=== PATIENT | female | born 1980 | race Asian ===

== ENCOUNTER 2016-09-05 05:03 | Emergency (ER) | payer OTHER, MEDICAID ==
[2016-09-05] MEDS ORDERED: NS 0.9% 1000 ML* 2,000 ML IV ONE (07:09)
[2016-09-05] MEDS ORDERED: Ketorolac INJ* 30 MG/ML 1 ML VIAL IV ONE (07:09)
[2016-09-05] MEDS ORDERED: diPHENhydraMINE IV* 50 MG/ML 1 ml VIAL (BENADRYL) IM ONE (07:09)
[2016-09-05 07:22] LABS: Hematocrit 38 % (35-47); Hemoglobin 11.5 g/dl (12.0-16.0); Mean Corpuscular HGB Conc 31 g/dl (31-36); Mean Corpuscular Hemoglobin 22 pg (27-31); Mean Platelet Volume 11 um3 (7.4-10.4); Red Blood Count 5.22 10^6/ul (4.0-5.4); Red Cell Distribution Width 16 % (10.5-15); White Blood Count 16.1 10^3/ul (3.5-10.8)
[2016-09-05 07:23] LABS: Comments Flag Yes; Mean Corpuscular Volume 72 fL (80-97)
--- NOTE | 2016-09-05 07:28 | ED ---
Headache - HPI Summary HPI Summary: 36 female presents accompanied with daughter with complaints of headache, myalgias and sore throat that began and has been intermittent since then. Patient has been unable to sleep because of the pain. She has tried taking her at home medication that she is prescribed for chronic migraines- triptan, propanolol and tylenol. Patient has had little relief. Last taken at 8 and 10pm last night 09/04/16. Patient denies nausea and vomiting. She states this headache is different than her typical migraines. Admits to fever/chills. She did have the flu shot this year. Denies neurologic deficits and excessive tearing/runny nose. Describes the headache to be diffuse on the top of her head and a burning sensation. Denies radiation and numbness/tingling. Is experiencing photophobia and hurts to use her eyes but no aura or visual changes. Sore throat is exacerbated by swallowing. - History Of Current Complaint Chief Complaint: EDHeadache Stated Complaint: HEADACHE Time Seen by Provider: 09/05/16 06:49 Hx Obtained From: Patient Onset/Duration: Sudden Onset, Started days ago, Worse Since Initially Headache Was: Severe Currently Pain Is: Current Pain Scale(0-10)= - 8 Timing: Intermittent, Lasting: - hours, goes away and comes back Character: Sharp - burning Location of Headache: Diffuse, Frontal, Parietal Aggravating Factor: Exertion, Bright Lights Allevating Factors: Nothing, Rest Associated Signs And Symptoms: Fever - Allergies/Home Medications Allergies/Adverse Reactions: Allergies Allergy/AdvReac Type Severity Reaction Status Date / Time Ciprofloxacin Allergy Mild Itching Verified 09/05/16 05:57 PMH/Surg Hx/FS Hx/Imm Hx Endocrine/Hematology History: Denies: Hx Diabetes Cardiovascular History: Denies: Hx Hypertension, Hx Pacemaker/ICD Respiratory History: Denies: Hx Asthma Sensory History: Denies: Hx Hearing Aid Neurological History: Reports: Hx Migraine, Hx Seizures Psychiatric History: Reports: Hx Panic Disorder - ANXIETY - Surgical History Surgery Procedure, Year, and Place[place] [facility] [place] BIL[place]AL ESSURE PLACEMENT - Immunization History Date of Tetanus Vaccine: UTD Date of Influenza Vaccine: 2012 Infectious Disease History: No Infectious Disease History: Denies: Traveled Outside the [place] in Last 30 Days - Family History Known Family History: Positive: None Family History: R & n/C - Social History Alcohol Use: None Hx Substance Use: No Substance Use Type: Reports: None Hx Tobacco Use: No Smoking Status (MU): Never Smoked Tobacco Review of Systems Positive: Fever, Chills Eyes: Negative Positive: Sore Throat Cardiovascular: Negative Respiratory: Negative Gastrointestinal: Negative Positive: Myalgia Skin: Negative Positive: Headache All Other Systems Reviewed And Are Negative: Yes Physical Exam Triage Information Reviewed: Yes Vital Signs On Initial Exam: Initial Vitals Temp Pulse Resp BP Pulse Ox 99.4 F 90 20 95/63 98 09/05/16 05:20 09/05/16 05:20 09/05/16 05:20 09/05/16 05:20 09/05/16 05:20 low grade fever noted. patient's BP is her norm. Vital Signs Reviewed: Yes Appearance: Positive: Well-Nourished, Ill-Appearing, Pain Distress Skin: Positive: Warm - hot to touch, Skin Color Reflects Adequate Perfusion, Dry , Other - no subcutaneous nodules or signs of erythema marginatum Head/Face: Positive: Normal Head/Face Inspection Eyes: Positive: Normal, Conjunctiva Clear ENT: Positive: Normal ENT inspection, Hearing grossly normal, Pharyngeal erythema, TMs normal, Tonsillar swelling. Negative: Nasal congestion, Nasal drainage, Tonsillar exudate, Trismus, Muffled/hoarse voice Neck: Positive: Supple, Nontender, No Lymphadenopathy - difficult to palpate due to excessive adipose around neck. Negative: Nuchal Rigidity, Tenderness @ Respiratory/Lung Sounds: Positive: Clear to Auscultation, Breath Sounds Present. Negative: Decreased Breath Sounds, Rales, Rhonchi, Wheezes Cardiovascular: Positive: Normal, RRR, Pulses are Symmetrical in both Upper and Lower Extremities Abdomen Description: Positive: Nontender, No Organomegaly, Soft. Negative: Bruit, CVA Tenderness (R), CVA Tenderness (L), Peritoneal Signs Bowel Sounds: Positive: Present Musculoskeletal: Positive: Normal, Strength/ROM Intact. Negative: Pain @, Sana Sign Left, Sana Sign Right, Edema Left, Edema Right Neurological: Positive: Normal, Sensory/Motor Intact, Alert, Oriented to Person Place, Time, CN Intact II-III, Reflexes Intact, NV Bundle Intact Distally, Normal Gait, Finger to Nose - normal, Facial Symmetry, Speech Normal, Other - no chorea Psychiatric: Positive: Normal AVPU Assessment: Alert - Andrea Coma Scale Best Eye Response: 4 - Spontaneous Best Motor Response: 6 - Obeys Commands Best Verbal Response: 5 - Oriented Diagnostics - Vital Signs Vital Signs Temp Pulse Resp BP Pulse Ox 09/05/16 06:30 91 104/61 97 09/05/16 06:00 90 97/51 99 09/05/16 05:30 89 93/52 98 09/05/16 05:24 87 99 09/05/16 05:22 95/63 09/05/16 05:20 99.4 F 90 20 95/63 98 - Laboratory Result Diagrams: 09/05/16 05:35 09/05/16 05:35 Lab Statement: Any lab studies that have been ordered have been reviewed, and results considered in the medical decision making process. - CT ct brain CT Interpretation: No Acute Changes - no intracranial mass or hemorrhage is noted. CT Interpretation Completed By: Radiologist Re-Evaluation - Re-Evaluation First Eval Re-Evaluation Time: 09:00 Change: Improved - patient was feeling better after administration of toradol, benedryl fluids and amox. ready to d/c Headache Course/Dx - Course Course Of Treatment: Difficult history to obtain due to language barrier. CT brain ordered to rule out hemorrhage or lesion due to change in headache, and patient stating it is different and "worse than ever". It was negative. Labs, UA and flu/strep obtained due to fever and complaints of myalgia and sore throat. Positive for strep. Given fluids, toradol and benedryl to start for pain managment and break migraine cycle. Given amoxicillin first dose while in ED. No signs of complications of strep. Will be treated with Amox outpatient and follow up. Continue tylenol and migraine medications at home. Aware of worsening signs and symptoms. - Diagnoses Differential Diagnosis/HQI/PQRI: Migraine, Subarachnoid Hemorrhage, Tension Headache, Viral Syndrome, Other Provider Diagnoses: Streptococcal pharyngitis Discharge - Discharge Plan Condition: Stable Disposition: HOME Prescriptions: Amoxicillin CAP* [Amoxicillin 500 MG CAP*] 500 mg PO Q12H #19 cap Patient Education Materials: Strep Throat (ED) Referrals: Katherine Hilliard MD [Primary Care Provider] - Additional Instructions: Take prescribed antibiotic as directed until entire dose is finished, even if symptoms resolve. Recommend using Chloraseptic spray OTC to help soothe throat. Warm salt water swishes. Continue migraine medication to help with headache. Tylenol every 4-6 hours for fever and pain. Drink plenty of fluids and get plenty of rest. Follow up with your primary care doctor. If your symptoms worsen or do not improve please seek medical attention promptly.
[2016-09-05 07:32] LABS: ALT 25 U/L (7-52); Albumin 3.5 g/dL (3.2-5.2); Alkaline Phosphatase 83 U/L (34-104); BUN/Creatinine Ratio 11.3 (8-20); Blood Urea Nitrogen 9 mg/dL (6-24); CO2 Carbon Dioxide 25 mmol/L (22-32); Chloride 102 mmol/L (101-111); EGFR Non-African American 81.6 (>60); Globulin 3.9 g/dL (2-4); Glucose 120 mg/dL (70-100); Sodium 133 mmol/L (133-145); Total Protein 7.4 g/dL (6.4-8.9)
[2016-09-05 07:52] LABS: AST 27 U/L (13-39); Anion Gap 6 mmol/L (2-11); Potassium 3.9 mmol/L (3.5-5.0)
[2016-09-05] MEDS ORDERED: diPHENhydraMINE IV* 25 MG in NS 0.9% 50 ML* 50 ML IVPB ONE (08:20)
[2016-09-05] MEDS ORDERED: Amoxicillin CAP* 250 MG PO ONE (08:21)
[2016-09-05] MEDS ORDERED: diPHENhydraMINE IV* 50 MG/ML 1 ml VIAL (BENADRYL) IV ONE (08:21)
--- NOTE | 2016-09-05 08:58 | RAD ---
Indication: Headaches, myalgia with fever. CT of the brain was performed without IV contrast. Comparison is made with previous exam dated May 12, 2013. Ventricular structures are midline. No midline shift is noted. The extraction spaces are unremarkable. There is no evidence of intracranial mass or hemorrhage. No other high or low density lesions are identified. Mastoid air cells and paranasal sinuses are otherwise unremarkable. IMPRESSION: No intracranial mass or hemorrhage is noted.
[2016-09-05 09:57] VITALS: BP 99/57
== END 2016-09-05 09:56 | disposition home or self-care (01) ==
LOC: ED 05:03
DX: J02.0 Streptococcal pharyngitis (principal); R51 Headache; R50.9 Fever, unspecified; M79.1 Myalgia
CPT/HCPCS: 36415; 70450; 80053; 84702; 85025; 86703; 87502; 87651; 96374; 96375; 99284; A9270-GY; J1200; J1885

== ENCOUNTER 2016-09-07 15:33 | Emergency (ER) | payer OTHER, MEDICAID ==
[2016-09-07] MEDS ORDERED: NS 0.9% 1000 ML* 1,000 ML IV ONE ×3 (18:26→20:39)
--- NOTE | 2016-09-07 18:39 | ED ---
HPI Febrile Illness - HPI Summary HPI Summary: Patient arrives to ED with CC of continuing fever, sweats, chills and VALLEJO that begins in the posterior occipital lobe and radiates to the frontal lobe. She denies travel or sick contacts. She was seen in the ED 2 days ago and tested positive for strep throat. She was placed on Amoxicillin which she has been taking for 2 days. She continues to c/o fever. She has called her PCP who recommended her come to the ED and receive an LP. There is a language barrier and her is here with her helping to translate. She states she is otherwise healthy other than migraines. She denies abd pain, weakness, muscle aches or back pain. Denies urinary symptoms. She has a history of migraines, but she states this feels different than her typical migraine. Denies photophobia, tearing or nasal drainage. She denies chest pain, pressure or cough. She denies rash or skin changes. She denies throat pain or enlarged tonsils. Denies visual disturbances. Patient has never had anything like this before and states while it began 4 days ago, she feels her symptoms are becoming worse. She has tried to take her propanolol, triptan and tylenol for her VALLEJO's and these have not helped. - History of Current Complaint Chief Complaint: EDHeadache Time Seen by Provider: 09/07/16 17:42 Hx Obtained From: Patient Hx From Patient Unobtainable Due To: Other - difficult history d/t language barrier Timing: Constant Temperature: 97.6 F Initial Severity: Mild Current Severity: Severe Pain Intensity: 10 Pain Scale Used: 0-10 Numeric Aggravating Factors: Nothing Alleviating Factors: Nothing Associated Signs and Symptoms: Diaphoresis, Headache, Nausea, Night Sweats, Sore Throat - Risk Factors Pseudomonas Risk Factors: Negative Serious Bacterial Infection Risk Factors: Negative - Allergy/Home Medications Allergies/Adverse Reactions: Allergies Allergy/AdvReac Type Severity Reaction Status Date / Time Ciprofloxacin Allergy Mild Itching Verified 09/05/16 05:57 PMH/Surg Hx/FS Hx/Imm Hx Previously Healthy: Yes Endocrine/Hematology History: Denies: Hx Diabetes Cardiovascular History: Denies: Hx Hypertension, Hx Pacemaker/ICD Respiratory History: Denies: Hx Asthma Sensory History: Denies: Hx Hearing Aid Neurological History: Reports: Hx Migraine, Hx Seizures Psychiatric History: Reports: Hx Panic Disorder - ANXIETY - Surgical History Surgery Procedure, Year, and Place: 07/21/11 AT [facility] – [place] HYSTEROSCOPY BILATERAL ESSURE PLACEMENT - Immunization History Date of Tetanus Vaccine: UTD Date of Influenza Vaccine: 2012 Hx Pertussis Vaccination: No Immunizations Up to Date: Yes Infectious Disease History: Denies: Traveled Outside the [place] in Last 30 Days - Family History Known Family History: Positive: None Family History: R & n/C - Social History Occupation: Unemployed Lives: With Family Alcohol Use: None Hx Substance Use: No Substance Use Type: Reports: None Hx Tobacco Use: No Smoking Status (MU): Never Smoked Tobacco Review of Systems Positive: Fever, Chills, Fatigue, Skin Diaphoresis Eyes: Negative ENT: Negative Respiratory: Negative Gastrointestinal: Negative Positive: no symptoms reported, see HPI Musculoskeletal: Negative Skin: Negative Positive: Headache Psychological: Normal All Other Systems Reviewed And Are Negative: Yes Physical Exam Triage Information Reviewed: Yes Vital Signs On Initial Exam: Initial Vitals Temp Pulse Resp BP Pulse Ox 97.7 F 101 20 111/73 98 09/07/16 15:36 09/07/16 15:36 09/07/16 15:36 09/07/16 15:36 09/07/16 15:36 Vital Signs Reviewed: Yes Appearance: Positive: Well-Appearing, No Pain Distress, Well-Nourished Skin: Positive: Warm, Skin Color Reflects Adequate Perfusion Head/Face: Positive: Normal Head/Face Inspection Eyes: Positive: Normal, EOMI, HINA, Conjunctiva Clear Neck: Positive: Supple, No Lymphadenopathy Respiratory/Lung Sounds: Positive: Clear to Auscultation, Breath Sounds Present Cardiovascular: Positive: Normal, RRR Musculoskeletal: Positive: Normal, Strength/ROM Intact Neurological: Positive: Sensory/Motor Intact, Speech Normal Psychiatric: Positive: Normal - Andrea Coma Scale Best Eye Response: 4 - Spontaneous Best Motor Response: 6 - Obeys Commands Best Verbal Response: 5 - Oriented Diagnostics - Vital Signs Vital Signs Temp Pulse Resp BP Pulse Ox 09/07/16 16:50 99.1 F 100 18 124/82 100 09/07/16 15:36 97.7 F 101 20 111/73 98 - Laboratory Result Diagrams: 09/07/16 19:15 09/07/16 19:15 Lab Statement: Any lab studies that have been ordered have been reviewed, and results considered in the medical decision making process. Course/Dx - Course Course Of Treatment: Patient was given 1L fluids, labs oK. UA Ok. Patient has vomiting during stay x3. zofran given. 2 hours later, compazine was given. nausea and vomiting stopped. LP done by Dr. Alex. No evidence of infection or meningitis. afebrile. patient is OK with discharge home with note for work and nausea medications. This is a likely complication from strep throat diagnosed 2 days ago, or co-occuring viral illness causing low grade fevers, sweats and chills. Continuation of amoxicillin for strep throat and rest. patient will follow up with PCP. CXR negative. - Febrile Illness Differential Diagnoses: Fever of Unknown Origin, Pneumonia, Pyelonephritis - Diagnoses Provider Diagnoses: Fever Discharge - Discharge Plan Condition: Stable Disposition: HOME Prescriptions: Ondansetron ODT TAB* [Zofran 4 MG Odt TAB*] 4 mg PO Q6H PRN #12 tab.odt MDD 4 PRN Reason: Nausea Patient Education Materials: Viral Syndrome (ED) Forms: *Work Release Referrals: Katherine Hilliard MD [Primary Care Provider] - Additional Instructions: Follow up with your PCP. Call tomorrow. Tylenol 650mg three times daily as needed for pain If symptoms become worse, come back to ED Take zofran as needed for nausea
--- NOTE | 2016-09-07 19:08 | RAD ---
INDICATION: Fever. COMPARISON: Comparison is made with a prior chest x-ray study from March 08, 2010. TECHNIQUE: Dual-energy PA and lateral views of the chest were obtained. FINDINGS: The heart is within normal limits in size. Mediastinal and hilar contours appear within normal limits. The lungs are clear. No pleural effusion is present. IMPRESSION: NO EVIDENCE FOR ACTIVE CARDIOPULMONARY DISEASE.
[2016-09-07 19:34] LABS: Hematocrit 35 % (35-47); Mean Corpuscular HGB Conc 31 g/dl (31-36); Mean Corpuscular Hemoglobin 22 pg (27-31); Red Blood Count 5.05 10^6/ul (4.0-5.4); Red Cell Distribution Width 16 % (10.5-15); White Blood Count 6.4 10^3/ul (3.5-10.8)
[2016-09-07 19:35] LABS: Add Diff/Slide Review? Manual Diff Added; Comments Flag Yes; Mean Corpuscular Volume 70 fL (80-97)
[2016-09-07 19:41] LABS: ALT 24 U/L (7-52); Albumin 3.6 g/dL (3.2-5.2); Alkaline Phosphatase 103 U/L (34-104); BUN/Creatinine Ratio 7.6 (8-20); Blood Urea Nitrogen 5 mg/dL (6-24); C Reactive Protein 186.73 mg/L (< 5.00); CO2 Carbon Dioxide 26 mmol/L (22-32); Calcium 9.1 mg/dL (8.6-10.3); Chloride 101 mmol/L (101-111); Creatine Kinase 40 U/L (10-223); EGFR African American 131.1 (>60); EGFR Non-African American 101.9 (>60); Globulin 4.3 g/dL (2-4); Glucose 110 mg/dL (70-100); Sodium 135 mmol/L (133-145); Total Protein 7.9 g/dL (6.4-8.9)
[2016-09-07 19:43] LABS: AST 27 U/L (13-39); Anion Gap 8 mmol/L (2-11); Potassium 3.8 mmol/L (3.5-5.0)
[2016-09-07 19:58] LABS: Hypochromasia 1+; Immature Granulocytes 5 % (0-9); Neutrophil % 59 % (38-83); Reactive Lymph % 2 % (0-6)
[2016-09-07 20:00] LABS: Mean Platelet Volume 10 um3 (7.4-10.4)
[2016-09-07] MEDS ORDERED: Acetaminophen TAB* 325 MG ONE (20:12)
[2016-09-07] MEDS ORDERED: Acetaminophen TAB* 325 MG PO ONE (20:12)
[2016-09-07 20:30] LABS: Urine Bacteria 1+ (Absent); Urine Bilirubin Negative (Negative); Urine Glucose Negative (Negative); Urine Nitrite Negative (Negative)
[2016-09-07] MEDS ORDERED: Morphine INJ* 2 MG/ML 1 ML SYRINGE IV ONE (20:37)
--- NOTE | 2016-09-07 21:07 | RAD ---
INDICATION: Headache. COMPARISON: Comparison is made with a prior CT of the brain from September 05, 2016. TECHNIQUE: Contiguous axial sections of the brain were obtained from the skull base to the vertex without contrast. FINDINGS: The ventricles, cisterns and sulci are within normal limits. No significant focal abnormality or mass effect is seen. There is no evidence for hemorrhage. No significant focal osseous abnormality is seen. The visualized portion of the paranasal sinuses and mastoid air cells appear clear. IMPRESSION: NO EVIDENCE FOR ACUTE INTRACRANIAL ABNORMALITY.
[2016-09-07] MEDS ORDERED: Ondansetron INJ* 2 MG/ML VIAL IV ONE (21:42)
[2016-09-07] MEDS ORDERED: Morphine INJ* 4 MG/ML 1 ML SYRINGE ONE (22:19)
[2016-09-07] MEDS ORDERED: Morphine INJ* 4 MG/ML 1 ML SYRINGE IV ONE (22:21)
[2016-09-07 22:53] LABS: CSF Glucose 64 mg/dL (40-70)
--- NOTE | 2016-09-07 22:53 | ED ---
Vicente Newsome Soohyun, scribed for Concepcion Alex MD on 09/07/16 at 2155 . Progress - Progress Note Progress Note: [address] Alex in room to perform LP. Course/Dx - Course Course Of Treatment: Patient was given 1L fluids, labs and - Diagnoses Provider Diagnoses: Fever Procedure Note Lumbar Puncture - Lumbar Puncture Informed Conset (Refer to Hospital Form): Yes Position: Sitting Aseptic Technique: Local Anesthesia Spinal Needle Used: 22 Gauge The documentation as recorded by the melissaibVicente thompson Soohyun accurately reflects the service I personally performed and the decisions made by , Concepcion Alex MD.
[2016-09-07 22:59] LABS: Body Fluid Appearance Clear
[2016-09-07 23:00] LABS: BF RBC Count #1 0; BF RBC Count #2 0; BF WBC Count #1 1; BF WBC Count #2 2; RBC counts within 6%? Yes; WBC counts within 15%? Yes
[2016-09-07 23:01] LABS: Body Fluid WBC 1 /mcL
[2016-09-07 23:14] LABS: Body Fluid Total Cells Counted 30
[2016-09-07] MEDS ORDERED: PROCHLORPERAZINE INJ 5 MG/ML 2 ML VIAL IV PRN (23:52)
[2016-09-08] MEDS ORDERED: Ondansetron ODT TAB* 4 MG SL ONE (01:53)
[2016-09-08 02:35] VITALS: BP 105/71
== END 2016-09-08 02:34 | disposition home or self-care (01) ==
LOC: ED 15:33
DX: R50.9 Fever, unspecified (principal); R51 Headache; R11.0 Nausea
CPT/HCPCS: 36415; 70450; 71020; 80053; 81003; 81015; 82248; 82550; 82945; 83605; 84157; 85025; 86140; 86618; 87040; 87070; 87086; 87205; 87502; 89051; 96374; 99284; A9270-GY; J0696; J0780; J2270; J2405

== ENCOUNTER 2017-06-22 13:55 | Emergency (ER) | payer OTHER, MEDICAID ==
[2017-06-22] MEDS ORDERED: LORazepam INJ* 2 MG/ML 1 ML VIAL IV PUSH ONE ×2 (14:11→14:22)
[2017-06-22] MEDS ORDERED: LORazepam INJ* 2 MG/ML 1 ML VIAL ONE (14:23)
[2017-06-22 15:01] LABS: EGFR Non-African American 106.9 (>60)
[2017-06-22 15:09] LABS: ABS Basophils 0 10^3/ul (0-0.2); ABS Eosinophils 0.1 10^3/ul (0-0.6); ABS Lymphocytes 2.2 10^3/ul (1.0-4.8); ABS Monocytes 0.7 10^3/ul (0-0.8); ABS Neutrophils 4.7 10^3/ul (1.5-7.7); ABS Nucleated RBC 0 10^3/ul; Eosinophil % 1.8 % (0-6); Hematocrit 39 % (35-47); Hemoglobin 12.2 g/dl (12.0-16.0); Lymphocyte % 28.8 % (25-47); Mean Corpuscular HGB Conc 32 g/dl (31-36); Mean Corpuscular Hemoglobin 23 pg (27-31); Mean Corpuscular Volume 73 fL (80-97); Mean Platelet Volume 10 um3 (7.4-10.4); Nucleated Red Blood Cells % 0.1; Platelet Count 185 10^3/ul (150-450); Red Blood Count 5.27 10^6/ul (4.0-5.4); Red Cell Distribution Width 16 % (10.5-15); White Blood Count 7.8 10^3/ul (3.5-10.8)
[2017-06-22 15:31] VITALS: BP 108/72
--- NOTE | 2017-07-03 20:11 | ED ---
Gianni Newsome Stephanie, scribed for Bolivar Elise MD on 06/22/17 at 1414 . Allergic Reaction/Systemic - HPI Summary HPI Summary: The pt is a 37 y/o F presenting to the ED with c/o CP that began at 13:00 s/p taking her first dose of Lexapro. Symptoms include radiation of pain to the head. The CP is described as a burning sensation. The pt denies fever. - History of Current Complaint Chief Complaint: EDAllergicReaction Time Seen by Provider: 06/22/17 14:11 Hx Obtained From: Patient, Family/Office Equipment Technician - Onset/Duration: Sudden Onset, Still Present Timing: Constant Severity Currently: Mild Pain Intensity: 5 Pain Scale Used: 0-10 Numeric Character: Pain Aggravating Factor(s): Nothing Alleviating Factor(s): Nothing Associated Signs And Symptoms: Positive: Chest Pain - Allergies/Home Medications Allergies/Adverse Reactions: Allergies Allergy/AdvReac Type Severity Reaction Status Date / Time MS Ciprofloxacin Allergy Mild Itching Verified 09/05/16 05:57 [Ciprofloxacin] PMH/Surg Hx/FS Hx/Imm Hx Endocrine/Hematology History: Denies: Hx Diabetes Cardiovascular History: Denies: Hx Hypertension, Hx Pacemaker/ICD Respiratory History: Denies: Hx Asthma Sensory History: Denies: Hx Hearing Aid Neurological History: Reports: Hx Migraine, Hx Seizures Psychiatric History: Reports: Hx Panic Disorder - ANXIETY - Surgical History Surgery Procedure, Year, and Place: 07/21/11 AT [facility] – [place] HYSTEROSCOPY BILATERAL ESSURE PLACEMENT - Immunization History Date of Tetanus Vaccine: UTD Date of Influenza Vaccine: 2012 Infectious Disease History: No Infectious Disease History: Denies: Traveled Outside the [place] in Last 30 Days - Family History Known Family History: Negative: Cardiac Disease, Hypertension, Diabetes Family History: R & n/C - Social History Occupation: Unemployed Lives: With Family Alcohol Use: None Hx Substance Use: No Substance Use Type: Reports: None Hx Tobacco Use: No Smoking Status (MU): Never Smoked Tobacco Review of Systems Negative: Fever Positive: Chest Pain Positive: Headache All Other Systems Reviewed And Are Negative: Yes Physical Exam - Summary Physical Exam Summary: Appearance: Well-appearing, Well-nourished Skin: Warm, Dry, No rash Eyes: Normal, PERRL, EOMI, sclera anicteric ENT: Normal Neck: Supple, nontender Respiratory: Clear to auscultation Cardiovascular: S1, S2, no murmur, no rub, no gallop Abdomen: Soft, nontender, no organomegaly Bowel sounds: Present Musculoskeletal: Normal, Strength/ROM Intact, no edema, pulses symmetrical Neurological: Normal, A&Ox3, cranial nerves II-XII WNL, follows commands, gait not tested, sensation intact to pin and light touch Psychiatric: agitated, behavior appropriate, dressed appropriately, judgment intact Triage Information Reviewed: Yes Vital Signs On Initial Exam: Initial Vitals Temp Pulse Resp BP Pulse Ox 96.7 F 79 22 112/93 100 06/22/17 14:03 06/22/17 14:03 06/22/17 14:03 06/22/17 14:03 06/22/17 14:03 Vital Signs Reviewed: Yes Diagnostics - Vital Signs Vital Signs Temp Pulse Resp BP Pulse Ox 06/22/17 14:03 96.7 F 79 22 112/93 100 - Laboratory Result Diagrams: 06/22/17 14:38 06/22/17 14:38 Lab Statement: Any lab studies that have been ordered have been reviewed, and results considered in the medical decision making process. - EKG 14:31 Cardiac Rate: NL - 79 BPM EKG Rhythm: Sinus Rhythm EKG Interpretation: possible RBBB Re-Evaluation - Re-Evaluation First Eval Re-Evaluation Time: 14:45 Change: Improved - Pt is calmer and not moaning. Allergic Reaction Course/Dx - Course Course Of Treatment: Received Attavan. The pt is much calmer and easily arousable. She is discharged home to follow up with psych. - Diagnoses Provider Diagnoses: Panic attack Discharge - Discharge Plan Condition: Fair Disposition: HOME Prescriptions: Mirtazapine 15 mg PO BEDTIME #30 tab Patient Education Materials: Panic Attack (ED) Referrals: Katherine Hilliard MD [Primary Care Provider] - The documentation as recorded by the Gianni goodwin Stephanie accurately reflects the service I personally performed and the decisions made by me, Bolivar Elise MD.
== END 2017-06-22 17:50 | disposition home or self-care (01) ==
LOC: ED 13:55
DX: F41.0 Panic disorder [episodic paroxysmal anxiety] (principal); R07.9 Chest pain, unspecified; Z88.3 Allergy status to other anti-infective agents
CPT/HCPCS: 36415; 80053; 84443; 85025; 93005; 96374; 99283; J2060

== ENCOUNTER 2017-07-06 05:01 | Inpatient (IN) | payer OTHER, MEDICAID ==
[2017-07-06] MEDS ORDERED: NS 0.9% 1000 ML* 1,000 ML IV ONE (05:44)
[2017-07-06 05:47] LABS: ABS Basophils 0 10^3/ul (0-0.2); ABS Eosinophils 0.2 10^3/ul (0-0.6); ABS Lymphocytes 1.8 10^3/ul (1.0-4.8); ABS Monocytes 0.7 10^3/ul (0-0.8); ABS Neutrophils 4.7 10^3/ul (1.5-7.7); ABS Nucleated RBC 0 10^3/ul; Eosinophil % 2.1 % (0-6); Hematocrit 37 % (35-47); Hemoglobin 11.8 g/dl (12.0-16.0); Lymphocyte % 24.1 % (25-47); Mean Corpuscular HGB Conc 32 g/dl (31-36); Mean Corpuscular Hemoglobin 23 pg (27-31); Mean Corpuscular Volume 73 fL (80-97); Mean Platelet Volume 10 um3 (7.4-10.4); Nucleated Red Blood Cells % 0; Platelet Count 180 10^3/ul (150-450); Red Blood Count 5.07 10^6/ul (4.0-5.4); Red Cell Distribution Width 16 % (10.5-15); White Blood Count 7.4 10^3/ul (3.5-10.8)
[2017-07-06 05:56] LABS: EGFR Non-African American 106.9 (>60)
--- NOTE | 2017-07-06 07:04 | ED ---
Chaz Newsome Julia, scribed for Liam Chen MD on 07/06/17 at 0642 . Syncope/Near Syncope - HPI Summary HPI Summary: This patient is a 37 year old F [place] [facility] due to a tonic clonic seizure at 04:45 this morning lasting a few minutes. Per EMS, patient was given 10mg of IV Versed that stopped the seizure. Patient reports headache and CP prior to seizure. Patient has an extensive seizure history. states she has had three seizures in 2018, and roughly 3 in 2017. HPI is limited due to drowsiness of the patient after Versed. - History Of Current Complaint Chief Complaint: EDSeizure Time Seen by Provider: 07/06/17 05:31 Hx Obtained From: Patient, EMS Onset/Duration: Sudden Onset Timing: Minutes Activity At Onset: Unknown Associated Signs And Symptoms: Chest Pain, Headache, Seizure Related History: Similar Episode/Dx as - seizures Frequency: Ongoing Incidents Of Syncope For (in Mins/Days/Weeks/Years) - Allergies/Home Medications Allergies/Adverse Reactions: Allergies Allergy/AdvReac Type Severity Reaction Status Date / Time Ciprofloxacin Allergy Mild Itching Verified 09/05/16 05:57 [Ciprofloxacin] PMH/Surg Hx/FS Hx/Imm Hx Endocrine/Hematology History: Denies: Hx Diabetes Cardiovascular History: Denies: Hx Hypertension, Hx Pacemaker/ICD Respiratory History: Denies: Hx Asthma Sensory History: Denies: Hx Hearing Aid Neurological History: Reports: Hx Migraine, Hx Seizures Psychiatric History: Reports: Hx Panic Disorder - ANXIETY - Surgical History Surgery Procedure, Year, and Place: 07/21/11 [place] [facility] [place]STEROS[place] BILATERAL ESSURE PLACEMENT - Immunization History Date of Tetanus Vaccine: UTD Date of Influenza Vaccine: 2012 Infectious Disease History: No Infectious Disease History: Denies: Traveled Outside the [place] in Last 30 Days - Family History Known Family History: Negative: Cardiac Disease, Hypertension, Diabetes Family History: R & n/C - Social History Alcohol Use: None Hx Substance Use: No Substance Use Type: Reports: None Hx Tobacco Use: No Smoking Status (MU): Never Smoked Tobacco Review of Systems All Other Systems Reviewed And Are Negative: Yes - Comments Additional Review of Systems Comments: ROS is limited due to drowsy state of patient after Versed dose given by EMS. Physical Exam - Summary Physical Exam Summary: Appearance: Well appearing, no pain distress, no drowsiness Skin: warm, dry, reflects adequate perfusion Head/face: normal Eyes: EOMI, HINA ENT: normal, no tongue injury Neck: supple, non-tender Respiratory: CTA, breath sounds present Cardiovascular: RRR, pulses symmetrical Abdomen: non-tender, soft Bowel: present Musculoskeletal: normal, strength/ROM intact, moves all joints appropirately Neuro: normal, sensory motor intact, A&Ox3 Triage Information Reviewed: Yes Vital Signs On Initial Exam: Initial Vitals Temp Pulse Resp BP Pulse Ox 97.7 F 81 11 108/65 95 07/06/17 05:02 07/06/17 05:02 07/06/17 05:02 07/06/17 05:02 07/06/17 05:02 Vital Signs Reviewed: Yes Diagnostics - Vital Signs Vital Signs Temp Pulse Resp BP Pulse Ox 07/06/17 05:32 76 26 92/62 98 07/06/17 05:02 97.7 F 81 11 108/65 95 - Laboratory Lab Results: Lab Results 07/06/17 07/06/17 Range/Units 05:25 05:25 WBC 7.4 (3.5-10.8) 10^3/ul RBC 5.07 (4.0-5.4) 10^6/ul Hgb 11.8 L (12.0-16.0) g/dl Hct 37 (35-47) % MCV 73 L (80-97) fL MCH 23 L (27-31) pg MCHC 32 (31-36) g/dl RDW 16 H (10.5-15) % Plt Count 180 (150-450) 10^3/ul MPV 10 (7.4-10.4) um3 Neut % (Auto) 64.4 (38-83) % Lymph % (Auto) 24.1 L (25-47) % Faulkner % (Auto) 9.1 H (1-9) % Eos % (Auto) 2.1 (0-6) % Baso % (Auto) 0.3 (0-2) % Absolute Neuts (auto) 4.7 (1.5-7.7) 10^3/ul Absolute Lymphs (auto) 1.8 (1.0-4.8) 10^3/ul Absolute Monos (auto) 0.7 (0-0.8) 10^3/ul Absolute Eos (auto) 0.2 (0-0.6) 10^3/ul Absolute Basos (auto) 0 (0-0.2) 10^3/ul Absolute Nucleated RBC 0 10^3/ul Nucleated RBC % 0 Sodium 134 (133-145) mmol/L Potassium 3.3 L (3.5-5.0) mmol/L Chloride 105 (101-111) mmol/L Carbon Dioxide 25 (22-32) mmol/L Anion Gap 4 (2-11) mmol/L BUN 8 (6-24) mg/dL Creatinine 0.63 (0.51-0.95) mg/dL Est GFR ( Amer) 137.5 (>60) Est GFR (Non-Af Amer) 106.9 (>60) BUN/Creatinine Ratio 12.7 (8-20) Glucose 99 (70-100) mg/dL Calcium 9.0 (8.6-10.3) mg/dL Total Bilirubin 0.70 (0.2-1.0) mg/dL AST 17 (13-39) U/L ALT 22 (7-52) U/L Alkaline Phosphatase 54 (34-104) U/L Total Protein 7.0 (6.4-8.9) g/dL Albumin 3.6 (3.2-5.2) g/dL Globulin 3.4 (2-4) g/dL Albumin/Globulin Ratio 1.1 (1-3) Result Diagrams: 07/06/17 05:25 07/06/17 05:25 Lab Statement: Any lab studies that have been ordered have been reviewed, and results considered in the medical decision making process. - EKG 0501 Cardiac Rate: NL - at 77 BPM EKG Rhythm: Sinus Rhythm ST Segment: Non-Specific - anterior leads EKG Interpretation: nml axis Course/Dx Course Of Treatment: Hx limited by pt drowsiness after versed. Prior EEGs showed 1 neg and 1 pos study in 2013. On no meds. No head injury. CT 9mo ago was wnl. No tongue or joint injury. Does not drive. In records sz vs pseudosz. Obtained prolactin which is pending. Admit for sz obs, neuro c/s and possible repeat EEG. - Diagnoses Differential Diagnosis/HQI/PQRI: Positive: Seizure, Other - non-epileptic seizure Provider Diagnoses: Generalized seizure, Epilepsy - Physician Notifications Discussed Care of Patient With: Simi Winter Time Discussed With Above Provider: 06:30 Instructed by Provider To: Admit As Inpatient Discharge - Discharge Plan Condition: Fair Disposition: ADMITTED TO [facility] Referrals: Katherine Hilliard MD [Primary Care Provider] - The documentation as recorded by the Chaz goodwin Julia accurately reflects the service I personally performed and the decisions made by me, Liam Chen MD.
[2017-07-06] MEDS ORDERED: Al Hydrox/Mg Hydrox/Simet LIQ* 30 ML UDC PO PRN (09:30)
[2017-07-06] MEDS ORDERED: Albuterol 2.5 MG/3 ML NEB.SOL* (0.083%) INH PRN (09:30)
[2017-07-06] MEDS ORDERED: traZODone TAB* 50 MG TAB PO PRN (09:33)
[2017-07-06] MEDS ORDERED: Albuterol HFA INHALER* 8 gm MDI INH PRN (09:33)
[2017-07-06] MEDS ORDERED: Potassium Chlor TAB* 20 MEQ TAB.ER PO ONE (09:35)
--- NOTE | 2017-07-06 12:45 | HP ---
CC: Dr. Anderson * DATE OF ADMISSION: 07/06/2017. TIME: 7:00 a.m. PRIMARY CARE PHYSICIAN: Dr. Hilliard. PATIENT'S NEUROLOGIST: Dr. Odonnell. CHIEF COMPLAINT: Seizure. HISTORY OF PRESENT ILLNESS: This is a 37-year-old female with a history of a seizure disorder who presents from home with reported seizure activity. She had not been feeling well last evening and could not sleep, and early this morning came out to the kitchen and she cannot remember anything after that. Reportedly her daughter called EMS and when EMS arrived they witnessed "tonic clonic seizure activity" and administered Versed after which her seizure activity resolved. I have attempted to reach her daughter, Cary; however, the emergency contact information provided, which is her , does not answer. Ms. Frank reports having been diagnosed with a seizure disorder five years ago, for which she does not take any antiepileptics and she cannot remember when her last seizure was, but believes it has been several years. At this time she feels sleepy, but otherwise has no complaints. She does report a recent cold with rhinorrhea and sore throat, and also has had decreased appetite, some nausea and epigastric pain over the past few days. She denies fevers, dysuria, diarrhea, or recent headache. PAST MEDICAL HISTORY: Seizure disorder with an abnormal EEG in 2013, migraine disorder. MEDICATIONS: 1. Propranolol 60 mg b.i.d. 2. Nortriptyline 30 mg at bedtime. Please note that these two prescriptions are the only one she says she takes; however, her medication list also includes the followin. Relpax 40 mg daily prn. 2. Lexapro 10 mg at bedtime. 3. Trazodone 50 mg at bedtime prn. ALLERGIES: CIPROFLOXACIN. SOCIAL HISTORY: She works in the kitchen at [employer]. She lives with her and her children. She does not smoke cigarettes. She drinks one to two alcoholic beverages per month and uses no illicit substances. REVIEW OF SYSTEMS: As per HPI. The remainder of the 14 point review of systems is negative. PHYSICAL EXAMINATION GENERAL: Drowsy, young female who alerts to voice. She falls asleep several times during my interview. She is oriented times three. VITAL SIGNS: Heart rate 85, respiratory rate 26, pulse ox 98 percent on room air, blood pressure 104/55, temperature 97.7. HEENT: Pupils are 3 mm bilaterally and reactive to light. She does have some lateral nystagmus in both directions, but fatigues after two seconds. Moist oral mucosa with no pharyngeal exudates or erythema. NECK: No cervical adenopathy, no JVP. CHEST: Regular rate and rhythm. No murmurs. PMI nondisplaced. LUNGS: Clear bilaterally. ABDOMEN: Soft, nontender, nondistended. No guarding, no rebound. Negative Gallegos sign. EXTREMITIES: No edema, no rashes, no ulcers. NEUROLOGIC: Strength 5+ throughout. Coordination is intact. She follows complex commands and has good recall. LABORATORY DATA: White blood cell 7.4, hemoglobin 11.8, platelets 180; sodium 134, potassium 3.3, chloride 105, bicarb 25, BUN 8, creatinine 0.63, glucose 99 , LFT's are within normal limits, HCG and prolactin are pending. ASSESSMENT AND PLAN: This is a 37-year-old female with a history of a seizure disorder, not on antiepileptics who presents with a reported tonic clonic seizure at home early this morning. 1. Seizure: This was reportedly witnessed by her daughter; however, unfortunately I cannot reach her daughter to discuss what she witnessed this morning. It is unclear why Ms. Frank is not on antiepileptics. Records from her neurologist would be helpful. I will attempt to get them when the office opens. I have consulted with Dr. Anderson and preliminary he recommends an EEG and CPK which are pending at this time. She has not had imaging on this admission and I will defer this until she is evaluated by Neurology. I will follow-up on the HCG and the prolactin, which are also both pending. 2. Hypokalemia: Replete now. 3. History of migraines: None recently. Continue Propranolol and Nortriptyline. DISPOSITION: Pending Neurology consultation. [id number]/[facility] #: [id number] [facility]
[2017-07-06] MEDS ORDERED: LORazepam INJ* 2 MG/ML 1 ML VIAL ONE (13:14)
[2017-07-06] MEDS ORDERED: LORazepam INJ* 2 MG/ML 1 ML VIAL IV PUSH PRN ×2 (13:27→16:04)
[2017-07-06] MEDS ORDERED: Ondansetron INJ* 2 MG/ML VIAL ONE (13:28)
[2017-07-06] MEDS: Ondansetron INJ* 2 MG/ML VIAL IV SCH ×3 (13:34→21:33)
[2017-07-06] MEDS ORDERED: CMC:Zonisamide (NF) 50 MG CAP PO ONE (13:40)
[2017-07-06] MEDS ORDERED: CMC:Zonisamide (NF) 50 MG CAP PO SCH ×2 (14:00→21:00)
[2017-07-06] MEDS ORDERED: clonazePAM TAB(*) 1 MG PO SCH (14:00)
[2017-07-06] MEDS ORDERED: clonazePAM TAB(*) 1 MG ONE (14:05)
[2017-07-06 15:10] LABS: Urine Appearance Cloudy; Urine Blood 2+ (Negative); Urine Color Yellow; Urine Ketones Negative (Negative); Urine Protein Negative (Negative); Urine Specific Gravity 1.008 (1.010-1.030); Urine Urobilinogen Negative (Negative)
[2017-07-06 15:40] LABS: ABS Basophils 0 10^3/ul (0-0.2); ABS Eosinophils 0.1 10^3/ul (0-0.6); ABS Lymphocytes 1.7 10^3/ul (1.0-4.8); ABS Monocytes 0.7 10^3/ul (0-0.8); ABS Neutrophils 3.9 10^3/ul (1.5-7.7); ABS Nucleated RBC 0 10^3/ul; Eosinophil % 2.2 % (0-6); Hematocrit 35 % (35-47); Lymphocyte % 25.9 % (25-47); Mean Corpuscular HGB Conc 31 g/dl (31-36); Mean Corpuscular Hemoglobin 23 pg (27-31); Mean Corpuscular Volume 74 fL (80-97); Mean Platelet Volume 10 um3 (7.4-10.4); Nucleated Red Blood Cells % 0.1; Platelet Count 162 10^3/ul (150-450); Red Cell Distribution Width 16 % (10.5-15); White Blood Count 6.5 10^3/ul (3.5-10.8)
[2017-07-06] MEDS ORDERED: NS 0.9% 1000 ML* 500 ML IV ONE (17:47)
[2017-07-06] MEDS ORDERED: cefTRIAXone(*) 1 GM in NS 0.9% 50 ML* 50 ML IVPB SCH (18:00)
[2017-07-06] MEDS: cefTRIAXone(*) 1 GM in D5W 50 ML BAG* 50 ML IVPB SCH (18:30)
[2017-07-06] MEDS: Nortriptyline CAP* 10 MG PO SCH (21:33)
[2017-07-06] MEDS: Propranolol LA CAP* 60 MG PO SCH (21:33)
[2017-07-06] MEDS: Citalopram TAB* 20 MG PO SCH (21:33)
[2017-07-06] MEDS: NS 0.9% 1000 ML* 1,000 ML IV SCH (21:38)
--- NOTE | 2017-07-06 22:25 | CONS ---
CONSULTATION REPORT: DATE OF CONSULT: 07/06/17 PATIENT OF: Dr. Winter and Dr. Hilliard. HISTORY OF PRESENT ILLNESS: This is a 37-year-old woman who has a past history of seizures versus pseudoseizures who presented with possible seizures today. From Dr. Odonnell's notes back from 2013, she was having spells where she would stare off and sometimes jerks. She was on Tegretol for a while, but then there was concern about pseudoseizures and she underwent EEG monitoring at [facility], which showed no clinical seizure activity, no electrographic seizure activity and no ictal seizure discharges and she was taken off Tegretol at that point. While she was on Tegretol, she was also started on Zonegran, but the combination caused some dizziness. She has never been on Zonegran by herself. She continued to follow with Dr. Odonnell, but for her migraine headaches not her seizures. She has been stressed recently according to her children because of some marital discord. This morning at about 5:30, she had a spell, witnessed a tonic -clonic seizure activity, was given Versed and brought to the emergency room. She was sleepy following that, but then woke up and wanted to go home and talking and moving all 4 extremities. She then had, early afternoon, another episode, which was characterized by 2 minutes of generalized clonic activity, but with hand flapping associated with that according to Dr. Winter and some generalized tonic activity in her trunk. I had seen her first thing in the morning at 8:30 for my initial evaluation and when Dr. Winter called, I saw her within several minutes of the second spell, she was vomiting, clearly bringing up material. I then recommended beginning Zonegran for both her migraines and possible events and to give her some Klonopin and we would do video EEG monitoring if she had another event. She had a third event, which apparently was similar to the second one and she was transferred to the unit where I saw her for third time today and she was awake, understanding things, quiet, but moving all extremities with power. PAST MEDICAL HISTORY: Includes her migraines, history of spells according to Dr. Odonnell's note, there may have been an EEG that is abnormal, but had several that were normal, and had a prolonged monitoring that was normal. PAST SURGICAL HISTORY: She has had no known surgeries. MEDICATIONS AT HOME: Include: 1. Relpax 40 mg a day p.r.n. migraines. 2. Nortriptyline 30 mg at night. 3. Propranolol 60 mg twice a day. 4. Mirtazapine 15 mg a day. Her medication list also includes: 1. Lexapro 10 mg at bedtime. 2. Trazodone 50 mg at bedtime, but apparently she does not take these. She recently saw Dr. Odonnell on 06/24/17. 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 Apparently, she is otherwise healthy. 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 She does not smoke and drinks about 2 alcoholic beverages a month. Does not use drugs. REVIEW OF SYSTEMS: Negative in all 14 spheres according to her children and as best I can gather from her. PHYSICAL EXAMINATION: On exam, temperature 98.1, pulse 76, blood pressure 103/ 72. She is alert and oriented now with brief answers. Initially when I saw her , she was either sedated or postictal at 08:30. Cranial nerves II through XII were intact. Fundi were benign. Motor exam, she moved all extremities with power. She did not cooperate for full strength testing. Reflexes were 1+ and equal, downgoing toes. Neck was supple. Chest clear. Cardiovascular: Regular rate and rhythm. Abdomen soft with positive bowel sounds. DIAGNOSTIC STUDIES/LAB DATA: Labs include white count of 7.4, hematocrit 37, platelet count of 180. Normal electrolytes. Potassium 3.3, beta hCG negative, prolactin 49.9, normal CMP. Tegretol less than 0.2. UA, specific gravity 1008 , blood 2+, nitrites positive. IMPRESSION: It is unclear from her past medical history whether Eliot has epilepsy or nonepileptiform paroxysmal disorder secondary to stress because what had been thought previously. The Hospitalist was not sure based on her observation whether these were seizures or not and she did have an elevated prolactin given the number of spells we are actively monitoring. I have taken the liberty of beginning Zonegran, which would be good for both her migraines and her seizures. She was on it briefly before, but in conjunction with Tegretol, which may have made her more dizzy. We are holding the Klonopin for now since she is being monitored. We want to possibly capture another event to try to confirm whether these are cerebrally generated events or not. Her EEG, which showed some diffuse slowing, could have been postictal, but it could have been secondary to medication. Thank you for sharing her case. [id number]/[facility] #: [id number] TRNIO
--- NOTE | 2017-07-06 22:50 | EEG ---
ELECTROENCEPHALOGRAPHY: DATE OF STUDY: - ROOM #ICU-09 DATE OF DICTATION: 07/06/17 PATIENT OF: Dr. Simi Winter. CLINICAL PROBLEM: This is a 37-year-old woman being evaluated for possible seizure. MEDICATIONS: Include Versed. Her home meds are not currently listed and she cannot give good history. REPORT: With the patient drowsy in the ER, background cerebral activity consists of moderate amplitude rhythm that reaches 6 to 7 Hz in frequency, but also contained slower theta rhythm. At times, the patient appears asleep with background consisting of primarily delta and theta activity with some symmetric sleep spindles. No clearcut epileptiform potentials, focal abnormalities, or major asymmetries of background are noted. At times, muscle movement artifact are present. CLINICAL IMPRESSION: This EEG with patient drowsy and asleep is within normal limits. [id number]/[facility] #: [id number] MTDD
[2017-07-07] MEDS: Ondansetron INJ* 2 MG/ML VIAL IV SCH ×7 (02:09→21:46)
[2017-07-07] MEDS: Citalopram TAB* 20 MG PO SCH ×2 (02:13→19:45)
[2017-07-07] MEDS: Nortriptyline CAP* 10 MG PO SCH ×2 (02:13→19:47)
[2017-07-07] MEDS: Propranolol LA CAP* 60 MG PO SCH ×3 (02:13→19:47)
[2017-07-07] MEDS: NS 0.9% 1000 ML* 1,000 ML IV SCH ×2 (03:57→17:46)
[2017-07-07] MEDS: Acetaminophen TAB* 325 MG PO PRN ×2 (08:46→19:45)
[2017-07-07] MEDS ORDERED: CMCS: Zonisamide (NF) 50 MG CAP PO SCH (09:00)
--- NOTE | 2017-07-07 11:01 | EEG ---
CARE HOME VIDEO/EEG MONITORING - Monitoring Monitoring Start Date: 07/06/17 Current Monitoring Session: 07/06/17 at 15:29 to 07/07/17 at 09:33 EEG Clinical Indication: This is a 37 year-old female who came in by EMS after a witnessed seizure at home on 07/06/17 that lasted ~5 minutes. Patient reports not feeling well yesterday or sleeping last night. Pt last remembers being in the kitchen. Pt daughter called EMS and upon their arrival Pt had more "tonic clonic" activity and was given Versed. On ER arrival, PT was lethargic but awake and able to answer simple questions. Does not remember when last seizure was but was diagnosed in 2013. Routine EEG was ordered and completed this morning. Pt was transferred to [address] [place] [address], Pt stated to her family that she was "going to seize." This episode lasted from 8530-1390. 2mg IV Ativan administered. Pt awoke from this episode and began vomiting. Continuous EEG monitoring was requested in order to characterize events. Introduction: INTRODUCTION: The EEG was monitored from 21 scalp electrodes. Nineteen electrodes consisted of the standard parasagittal, temporal and midline leads of the International 10 -20 system. In addition, special electrodes FT9 and FT10 were placed. EEG data were recorded on an [employer] system with simultaneous MPEG-4 digital video recording of patient behavior. EEG recording was in a monopolar montage with all electrodes referenced to FCz. Significant behavioral events were signaled by an event button, or putative electrical seizure events were detected by a computer program. All EEG data were reviewed in their entirety on a monitor with reconstruction of montages and adjustments of sensitivity and filtering. Simultaneous patient behavior was viewed on an adjacent monitor and correlated with the EEG. - Medications Active Medications: Acetaminophen (Tylenol Tab*) 650 mg PO Q4H PRN PRN Reason: FEVER/PAIN Last Admin: 07/07/17 08:46 Dose: 650 mg Al Hydrox/Mg Hydrox/Simethicone (Maalox Plus*) 30 ml PO Q6H PRN PRN Reason: INDIGESTION Albuterol (Ventolin 2.5 Mg/3 Ml Neb.Teresa*) 2.5 mg INH RT.[id number]-[id number] AWAKE PRN PRN Reason: sob/wheezing Albuterol (Ventolin Hfa Inhaler*) 2 puff INH Q4H PRN PRN Reason: SHORTNESS OF BREATH Citalopram Hydrobromide (Celexa Tab*) 20 mg PO BEDTIME [facility] Last Admin: 07/07/17 02:13 Dose: Not Given Sodium Chloride (Ns 0.9% 1000 Ml*) 1,000 mls @ 150 mls/hr IV PER RATE [facility] Last Admin: 07/07/17 03:57 Dose: 150 mls/hr Ceftriaxone Sodium 1 gm/ (Dextrose) 50 mls @ 200 mls/hr IVPB Q24H [facility] Last Admin: 07/06/17 18:30 Dose: 200 mls/hr Nortriptyline HCl (Pamelor Cap*) 30 mg PO BEDTIME [facility] Last Admin: 07/07/17 02:13 Dose: Not Given Ondansetron HCl (Zofran Inj*) 4 mg IV Q4H [facility] Last Admin: 07/07/17 06:46 Dose: 4 mg Propranolol HCl (Inderal La Cap*) 60 mg PO BID [facility] Last Admin: 07/07/17 08:46 Dose: 60 mg Trazodone HCl (Desyrel Tab*) 50 mg PO BEDTIME PRN PRN Reason: SLEEP Zonisamide (Zonegran (Nf)) 100 mg PO DAILY [facility] Last Admin: 07/07/17 08:46 Dose: 100 mg - Description Background: The waking background showed appropriate organization with clearly defined anterior-posterior voltage and frequency gradients. There was a defined posterior dominant rhythm of 9 Hertz, which was symmetrical and showed normal reactivity. Anteriorly, there was the expected pattern of lower voltage and more irregular theta and beta rhythms. There is excess beta activity present diffusely, consistent with medication effect. The sleep background was appropriately organized with well-developed spindles and vertex waves indicative of stage 2 sleep. These sleep transients showed appropriate morphology and were bilaterally synchronous and symmetrical. Development of diffuse delta range frequencies with dropout of stage 2 architecture accompanied transition to slow wave sleep, and a lower voltage mixed frequency pattern associated with eye movements was consistent with REM sleep. Intericatal Epileptiform Activity: None Ictal Activity: There were no ictal patterns noted during this long-term monitoring session. The patient experienced 6 events during this monitoring session. The longest event lasted about 10 minutes. Events were typically characterized by the sudden onset of moaning vocalizations, rapid limb shaking which could involve the legs bilaterally, sometimes just the right arm, sometimes both arms, and was arrhythmic and irregular. Her eyes were typically closed during events. There was some back arching. At times, events would stop only to restart again within a minute or two. During an event at 01:46, clinically the patient exhibited mostly unresponsiveness with eyes closed and moaning vocalizations, then she became completely quiet and unresponsive to nursing and family members for about 3 minutes before she began to exhibit rapid shaking as previously described. With all the these events, the EEG remained normal. - Impression Impression: This is a normal long-term monitoring session. There are no ictal patterns or epileptiform abnormalities. The patient experienced 6 seizure-like events, as described above, which consisted of rapid extremity shaking, moaning vocalizations, eyes closed, and sometimes unresponsiveness. At times, these events waxed and waned, stopped and then started again. There was no change in the EEG with these events. These events are non-epileptic in nature.
--- NOTE | 2017-07-07 14:54 | CONSULT ---
Consult Consult: This clinician attempted to meet with Ms. Frank in ICU room 9. She is somnolent and difficult to arouse, seeming not to understand my questions. It's uncertain whether this is cultural, via a language barrier, or fatigue from recent SHADI. Her , Chandler Frank, is present, but drowsy and uncommunicative as well. Psychiatry will attempt to revisit the patient again tomorrow on when she is perhaps more alert.
--- NOTE | 2017-07-07 16:23 | PN ---
Subjective Date of Service: 07/07/17 Interval History: 6 events overnight, video EEG without epileptiform activity. She is tearful this morning but is unable to tell me why she is upset. She has another episode while I am in the room but maintains consciousness the whole time of shaking, saying "I don't know why this is happening to me." The episode resolves with soothing by her nurse and deep breaths. Social History: Unchanged from Admission Past Medical History: Unchanged from Admission Objective Active Medications: Acetaminophen (Tylenol Tab*) 650 mg PO Q4H PRN PRN Reason: FEVER/PAIN Last Admin: 07/07/17 08:46 Dose: 650 mg Al Hydrox/Mg Hydrox/Simethicone (Maalox Plus*) 30 ml PO Q6H PRN PRN Reason: INDIGESTION Albuterol (Ventolin 2.5 Mg/3 Ml Neb.Teresa*) 2.5 mg INH RT.[id number] AWAKE PRN PRN Reason: sob/wheezing Albuterol (Ventolin Hfa Inhaler*) 2 puff INH Q4H PRN PRN Reason: SHORTNESS OF BREATH Citalopram Hydrobromide (Celexa Tab*) 20 mg PO BEDTIME [facility] Last Admin: 07/07/17 02:13 Dose: Not Given Sodium Chloride (Ns 0.9% 1000 Ml*) 1,000 mls @ 150 mls/hr IV PER RATE [facility] Last Admin: 07/07/17 03:57 Dose: 150 mls/hr Ceftriaxone Sodium 1 gm/ (Dextrose) 50 mls @ 200 mls/hr IVPB Q24H [facility] Last Admin: 07/06/17 18:30 Dose: 200 mls/hr Nortriptyline HCl (Pamelor Cap*) 30 mg PO BEDTIME [facility] Last Admin: 07/07/17 02:13 Dose: Not Given Ondansetron HCl (Zofran Inj*) 4 mg IV Q4H [facility] Last Admin: 07/07/17 15:47 Dose: Not Given Propranolol HCl (Inderal La Cap*) 60 mg PO BID [facility] Last Admin: 07/07/17 08:46 Dose: 60 mg Trazodone HCl (Desyrel Tab*) 50 mg PO BEDTIME PRN PRN Reason: SLEEP Vital Signs - 8 hr 07/07/17 15:58 Temperature 96.8 F Pulse Rate 64 Respiratory 16 Rate Blood Pressure 108/64 (mmHg) O2 Sat by Pulse 100 Oximetry Oxygen Devices in Use Now: None Appearance: tearful, nontoxic, withdrawn affect Eyes: No Scleral Icterus Ears/Nose/Mouth/Throat: NL Teeth, Lips, Gums Neck: NL Appearance and Movements; NL JVP Respiratory: Symmetrical Chest Expansion and Respiratory Effort Cardiovascular: NL Sounds; No Murmurs; No JVD, RRR Abdominal: NL Sounds; No Tenderness; No Distention Lymphatic: No Cervical Adenopathy Extremities: No Edema Skin: No Rash or Ulcers Neurological: Alert and Oriented x 3 Result Diagrams: 07/06/17 15:11 07/06/17 05:25 Additional Lab and Data: Lab Results 07/06/17 07/06/17 Range/Units 05:25 05:25 WBC 7.4 (3.5-10.8) 10^3/ul RBC 5.07 (4.0-5.4) 10^6/ul Hgb 11.8 L (12.0-16.0) g/dl Hct 37 (35-47) % MCV 73 L (80-97) fL MCH 23 L (27-31) pg MCHC 32 (31-36) g/dl RDW 16 H (10.5-15) % Plt Count 180 (150-450) 10^3/ul MPV 10 (7.4-10.4) um3 Neut % (Auto) 64.4 (38-83) % Lymph % (Auto) 24.1 L (25-47) % Jay % (Auto) 9.1 H (1-9) % Eos % (Auto) 2.1 (0-6) % Baso % (Auto) 0.3 (0-2) % Absolute Neuts (auto) 4.7 (1.5-7.7) 10^3/ul Absolute Lymphs (auto) 1.8 (1.0-4.8) 10^3/ul Absolute Monos (auto) 0.7 (0-0.8) 10^3/ul Absolute Eos (auto) 0.2 (0-0.6) 10^3/ul Absolute Basos (auto) 0 (0-0.2) 10^3/ul Absolute Nucleated RBC 0 10^3/ul Nucleated RBC % 0 Sodium 134 (133-145) mmol/L Potassium 3.3 L (3.5-5.0) mmol/L Chloride 105 (101-111) mmol/L Carbon Dioxide 25 (22-32) mmol/L Anion Gap 4 (2-11) mmol/L BUN 8 (6-24) mg/dL Creatinine 0.63 (0.51-0.95) mg/dL Est GFR ( Amer) 137.5 (>60) Est GFR (Non-Af Amer) 106.9 (>60) BUN/Creatinine Ratio 12.7 (8-20) Glucose 99 (70-100) mg/dL Calcium 9.0 (8.6-10.3) mg/dL Total Bilirubin 0.70 (0.2-1.0) mg/dL AST 17 (13-39) U/L ALT 22 (7-52) U/L Alkaline Phosphatase 54 (34-104) U/L Total Protein 7.0 (6.4-8.9) g/dL Albumin 3.6 (3.2-5.2) g/dL Globulin 3.4 (2-4) g/dL Albumin/Globulin Ratio 1.1 (1-3) Assess/Plan/Problems-Billing Assessment: 37 yo F with possible seizure disorder history and migraines admitted after her daughter witnessed seizure activity and collapse early 07/06 am. - Patient Problems (1) Psychogenic nonepileptic seizure Current Visit: Yes Status: Acute Code(s): F44.5 - CONVERSION DISORDER WITH SEIZURES OR CONVULSIONS SNOMED Code(s): 786243107 Comment: CARLOS issa consult psychiatry; appreciate their input. she is quite withdrawn to me; I'm unable to get an accurate psychiatric evaluation. (2) Migraines Current Visit: Yes Status: Acute Code(s): G43.909 - MIGRAINE, UNSP, NOT INTRACTABLE, WITHOUT STATUS MIGRAINOSUS SNOMED Code(s): 49728649 Comment: not active at this time, follow up with Dr. Anderson in neurology office Status and Disposition: inpatient, psych consult
[2017-07-07] MEDS: cefTRIAXone(*) 1 GM in D5W 50 ML BAG* 50 ML IVPB SCH (17:46)
[2017-07-08] MEDS: NS 0.9% 1000 ML* 1,000 ML IV SCH ×2 (00:59→07:46)
[2017-07-08] MEDS: Ondansetron INJ* 2 MG/ML VIAL IV SCH ×3 (02:08→09:46)
--- NOTE | 2017-07-08 07:32 | PN ---
NEUROLOGICAL FOLLOWUP: DATE OF FOLLOWUP: 07/07/17 PATIENT OF: Dr. Winter. HISTORY: The patient had multiple spells last night, both unresponsiveness and also shaking and flapping of the hands. These had been reviewed by Dr. Segal, the epileptologist. Of note, the patient had 6 seizure-like activity consisting mostly of rapid extremity shaking, moaning, vocalization with eyes closed and sometimes unresponsiveness. There was no change seen with any of these events, which are not epileptic in nature. CURRENT MEDICATIONS: Include her: 1. Trazodone 50 mg at bedtime as needed for sleep. 2. Inderal 60 mg twice a day. 3. Nortriptyline 30 at bedtime. 4. Celexa 20 mg at bedtime. 5. Albuterol p.r.n. PHYSICAL EXAMINATION: Pulse 79, respiratory rate 17, blood pressure 107/76, temperature 98.2. She was alert and oriented with normal speech. Cranial nerves II through XII intact. Motor exam revealed normal tone and strength. Reflexes were 1 and equal. Chest: Clear. Cardiovascular: Regular rate and rhythm. Abdomen: Soft. IMPRESSION AND PLAN: I discussed with Eliot, with her daughter and present that her spells were not seizures coming from her brain, but spells of seizures that were coming from stress and that the treatment would be a combination of counseling and possibly adjustment of medications for her mood and psychological issues. She will need continued treatment for her migraines and I will leave that to nut picker her care as an outpatient in followup. I have spoken to Dr. Winter and she will make a decision of whether inpatient psychiatric evaluation is needed. She definitely needs to follow up with her counselor and appropriate psychiatric care as an outpatient. No further neurological testing needs to be done at this time and she is not going to be on Zonegran for the time being and adjustments of her migraine medicines will be made as an outpatient as necessary. [id number]/[facility] #: [id number] [facility]
[2017-07-08] MEDS: Propranolol LA CAP* 60 MG PO SCH (07:52)
[2017-07-08 07:54] VITALS: BP 105/57
[2017-07-08] MEDS ORDERED: cefTRIAXone(*) 1 GM in NS 0.9% 50 ML* 50 ML IVPB SCH (18:00)
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
--- NOTE | 2017-07-09 04:36 | DS ---
CC: Dr. Hilliard * DISCHARGE SUMMARY: DATE OF ADMISSION: 07/06/17 DATE OF DISCHARGE: 07/08/17 PRIMARY CARE PROVIDER: Dr. Hilliard. ATTENDING FOR THIS HOSPITALIZATION: Dr. Simi Winter.* (DICTATED BY BHARGAVI ANDINO NP) HOSPITAL COURSE: This is a 37-year-old female patient who was brought into the emergency department for seizures. The patient's daughter had witnessed a tonic - clonic type episode with the patient that happened at home. EMS was called. The patient was brought in for new-onset seizure disorder; however, her symptoms were not consistent with typical seizure. The patient had video EEG done and during these, multiple episodes of body shaking, moaning with eyes closed and postictal. The patient did not have any epileptiform activity on her EEG that correlated with these episodes during her video EEG. This episode happened 6 times and there were no changes on her EEG that would correlate to the behavior and symptoms she was exhibiting on the video. The patient was seen by Neurology, who determined that she did not in fact have a seizure disorder that this was likely more behavioral or psychiatric in nature. As such , Dr. Altman was consulted from Psych to see the patient for pseudoseizures. The patient is a refugee, has been in the [facility] for 10 years. However, she had a significant amount of trauma and PTSD from being refugee from [facility]. Dr. Altman's opinion is that the patient suffers from severe PTSD and is recommending outpatient therapy. The patient is not a danger to herself or others and is recommending that she remain on Lexapro and trazodone with out- patient followup. Also of note, the patient's urine was growing out E. coli for which she was being treated with ceftriaxone also during this hospitalization. PHYSICAL EXAMINATION: The patient is awake and alert, in no acute distress. Vital signs are currently blood pressure 105/57, heart rate 71, respiratory rate 16, temperature is 97.9. HEENT: The patient is atraumatic, normocephalic. PERRLA with nonicteric sclerae. Neck: Supple and nontender. No JVD noted. No carotid bruits auscultated. No thyromegaly appreciated. Cardiovascular: S1, S2 present. Rate and rhythm are regular. There are no murmurs, gallops, or rubs. Lungs: Clear bilaterally to auscultation with no wheezing, rhonchi, or rales. Abdomen: Soft, nontender, nondistended. Positive bowel sounds in all 4 quadrants. : Deferred. Musculoskeletal: There is no clubbing, no cyanosis and no edema. She has +2 distal pulses palpable. Gross motor and sensation are intact. Neurologic: At this point, the patient is grossly intact with no focal deficits. She is awake and alert and oriented x3. LABORATORY DATA: WBC 6.5, RBC 4.8, hemoglobin 11, hematocrit 35, platelets 162. Sodium 134, potassium 3.3, which was treated. Chloride 105, carbon dioxide 25, BUN 8, creatinine 0.63, GFR is 106.9. Glucose 99, calcium 9.0, AST 17, ALT 22, alk phos 54, albumin is 3.6, creatine kinase 57, prolactin 49.9, and decreased to 37.2. Urinalysis showed 1+ bacteria and positive for nitrites on the growing out E. coli. Again, video EEG was negative for any epileptiform changes. MEDICATIONS AT THE TIME OF DISCHARGE: 1. Albuterol 2 puffs q.4 hours as needed. 2. Trazodone 50 mg at bedtime. 3. Lexapro 10 mg at bedtime. 4. Eletriptan 40 mg daily as needed for headache. 5. Propranolol 60 mg 2 times a day. 6. Nortriptyline 30 mg at bedtime. DISCHARGE PLAN: The patient was discharged to home in stable condition in the care of her and daughter. All questions were answered. The patient should follow up with Dr. Katherine Hilliard for medication refills and followup, also please refer to Dr. Altman's recommendations regarding outpatient treatment. The patient was not interested in [facility] and she is not currently in refugee status anymore. So, it becomes a difficult to situation I think for this patient to achieve some sort of outpatient followup as a refugee. However, a referral for [facility] would be warranted and hopefully will be followed up. The patient was discharged in stable condition. Medications were sent to her pharmacy. She stated her understanding of her followups at the time of discharge. BHARGAVI ANDINO, [facility] [id number]/[facility] #: [id number] [facility]
== END 2017-07-08 13:00 | disposition home or self-care (01) | DRG 880 ==
LOC: ED 05:01 → MED 09:30 → ICU 14:35 → OBSVTOIN 07-07 15:08 → MED 07-07 15:34
PROVIDERS: ADMIT Internal Medicine; ATTEND Internal Medicine
DX: F44.5 Conversion disorder with seizures or convulsions (principal); F43.10 Post-traumatic stress disorder, unspecified; G43.909 Migraine, unspecified, not intractable, without status migrainosus; G47.00 Insomnia, unspecified; Z79.899 Other long term (current) drug therapy; Z88.1 Allergy status to other antibiotic agents
CPT/HCPCS: 36415; 80053; 80156; 81003; 81015; 82550; 84146; 84702; 85025; 87077; 87086; 87186; 87641; 93005; 95819; 95951; 96365; 96375; 96376; 99284; A9270-GY; G0378; J0696; J2060; J2405

== ENCOUNTER 2018-01-18 14:45 | Emergency (ER) | payer OTHER ==
[2018-01-18 15:56] LABS: Hematocrit 39 % (35-47); Hemoglobin 12.2 g/dl (12.0-16.0); Mean Corpuscular HGB Conc 32 g/dl (31-36); Mean Corpuscular Hemoglobin 23 pg (27-31); Mean Corpuscular Volume 73 fL (80-97); Mean Platelet Volume 9.3 um3 (7.4-10.4); Platelet Count 178 10^3/ul (150-450); Red Blood Count 5.27 10^6/ul (4.00-5.40); Red Cell Distribution Width 16 % (10.5-15); White Blood Count 6.4 10^3/ul (3.5-10.8)
[2018-01-18 16:07] LABS: INR 0.87 (0.77-1.02)
[2018-01-18 16:11] LABS: EGFR Non-African American 90.2 (>60)
[2018-01-18 16:21] LABS: ABS Basophils 0 10^3/ul (0-0.2); ABS Eosinophils 0.3 10^3/ul (0-0.6); ABS Lymphocytes 1.6 10^3/ul (1.0-4.8); ABS Monocytes 0.6 10^3/ul (0-0.8); ABS Nucleated RBC 0 10^3/ul; Eosinophil % 4.2 % (0-6); Lymphocyte % 24.2 % (25-47); Nucleated Red Blood Cells % 0.3
[2018-01-18] MEDS ORDERED: Ketorolac INJ* 30 MG/ML 1 ML VIAL IM ONE (16:27)
--- NOTE | 2018-01-18 16:27 | ED ---
Neurological HPI - HPI Summary HPI Summary: Pt is a 37 y/o female BIBA who presents to the ED s/p seizure. She was at work when she had lower right back pain and couldnt move. Someone grabbed a chair but she couldnt sit due to the pain. Pt works at [employer] and her rehab department manager told her to go home. She couldnt walk, became stuck then had a seizure. The seizure was witnessed by family and EMS. She was given Versed by EMS. Pt is sleeping in the room but is easily roused. She still has back pain and states she cannot move due to the pain. Pt describes the pain in her right flank, radiating down her right leg. Vital signs while in room: HR 83 bpm, BP 115/79. PMHx non-epileptic seizures, migraine, and back pain. LKMP began on . As per sister, she usually takes Advil for pain. Home Medications Medication Instructions Recorded Confirmed Type Albuterol HFA INHALER* [Ventolin 2 puff INH Q4H PRN 07/06/17 01/18/18 History HFA Inhaler*] Eletriptan 40 mg (Nf)* [Relpax 40 mg PO DAILY PRN 07/06/17 01/18/18 History (NF)] Escitalopram (NF) [Lexapro 10 mg 10 mg PO BEDTIME 07/06/17 01/18/18 History (NF)] Nortriptyline CAP* [Nortriptylline 30 mg PO BEDTIME 07/06/17 01/18/18 History CAP*] Propranolol LA CAP* [Inderal LA 60 mg PO BID 07/06/17 01/18/18 History CAP*] Vitamin D3 CAP/TAB (NF) 50,000 units PO WEEKLY 01/18/18 01/18/18 History - History of Current Complaint Chief Complaint: EDSeizure Stated Complaint: SEIZURE Time Seen by Provider: 01/18/18 15:16 Hx Obtained From: Patient, Family/Window Installation Subcontractor - Sister, EMS Onset/Duration: Sudden Onset, Still Present Timing: Constant Pain Intensity: 0 Pain Scale Used: 0-10 Numeric Character: Other: - Low back pain Syncope Context: Witnessed Aggravating: Nothing Alleviating: Nothing Associated Signs and Symptoms: Negative: Weakness Related Hx: Seizure - Additional Pertinent History Primary Care Physician: CHICO - Allergy/Home Medications Allergies/Adverse Reactions: Allergies Allergy/AdvReac Type Severity Reaction Status Date / Time ciprofloxacin Allergy Mild Itching Verified 01/07/18 13:39 Home Medications: Home Medications Vitamin D3 CAP/TAB (NF) 50,000 units PO WEEKLY 01/18/18 [History Confirmed 01/18] PMH/Surg Hx/FS Hx/Imm Hx Endocrine/Hematology History: Denies: Hx Diabetes Cardiovascular History: Denies: Hx Hypertension, Hx Pacemaker/ICD Respiratory History: Denies: Hx Asthma Sensory History: Reports: Hx Contacts or Glasses Denies: Hx Hearing Aid Opthamlomology History: Reports: Hx Contacts or Glasses Neurological History: Reports: Hx Migraine, Hx Seizures Psychiatric History: Reports: Hx Panic Disorder - ANXIETY - Surgical History Surgery Procedure, Year, and Place: TUBAL LIGATION - Immunization History Date of Tetanus Vaccine: UTD Date of Influenza Vaccine: 2012 Infectious Disease History: No Infectious Disease History: Denies: Traveled Outside the [place] in Last 30 Days - Family History Known Family History: Negative: Cardiac Disease, Hypertension, Diabetes - Social History Alcohol Use: Occasionally Hx Substance Use: No Substance Use Type: Reports: None Hx Tobacco Use: No Smoking Status (MU): Never Smoked Tobacco Review of Systems Positive: flank pain - Right Positive: Myalgia - Low back pain radiating to right leg Neurological: Other - Seizure All Other Systems Reviewed And Are Negative: Yes Physical Exam - Summary Physical Exam Summary: Appearance: Well-appearing, moderate pain distress, well-nourished Skin: Warm, flushed, dry Head: Normal Head/Face inspection, atraumatic Eyes: Conjunctiva clear ENT: Normal inspection Neck: Supple, no nodes, no JVD Respiratory: Lungs clear, normal breath sounds, no respiratory distress Cardio: RRR, No murmur, pulses normal, brisk capillary refill Abdomen: Soft, nontender Bowel sounds: Present Musculoskeletal: Strength Intact/ROM intact, no calf tenderness, no edema. Psychological: Normal Neuro: A&O x3, CN II-XII intact, motor function 5/5, sensation intact, cerebellar normal Triage Information Reviewed: Yes Vital Signs On Initial Exam: Initial Vitals Temp Pulse Resp BP Pulse Ox 98.8 F 113 20 135/84 100 01/18/18 14:48 01/18/18 14:48 01/18/18 14:48 01/18/18 14:48 01/18/18 14:48 Vital Signs Reviewed: Yes Diagnostics - Vital Signs Vital Signs Temp Pulse Resp BP Pulse Ox 01/18/18 16:10 86 25 115/79 98 01/18/18 16:00 89 19 97 01/18/18 15:30 86 26 105/65 98 01/18/18 15:20 86 30 95 01/18/18 15:00 89 28 113/80 95 01/18/18 14:48 98.8 F 113 20 135/84 100 - Laboratory Lab Results: Lab Results 01/18/18 01/18/18 01/18/18 Range/Units 15:48 15:48 15:48 WBC 6.4 (3.5-10.8) 10^3/ul RBC 5.27 (4.00-5.40) 10^6/ul Hgb 12.2 (12.0-16.0) g/dl Hct 39 (35-47) % MCV 73 L (80-97) fL MCH 23 L (27-31) pg MCHC 32 (31-36) g/dl RDW 16 H (10.5-15) % Plt Count 178 (150-450) 10^3/ul MPV 9.3 (7.4-10.4) um3 Neut % (Auto) 62.6 (38-83) % Lymph % (Auto) 24.2 L (25-47) % [place] % (Auto) 8.7 H (0-7) % Eos % (Auto) 4.2 (0-6) % Baso % (Auto) 0.3 (0-2) % Absolute Neuts (auto) 4.0 (1.5-7.7) 10^3/ul Absolute Lymphs (auto) 1.6 (1.0-4.8) 10^3/ul Absolute Monos (auto) 0.6 (0-0.8) 10^3/ul Absolute Eos (auto) 0.3 (0-0.6) 10^3/ul Absolute Basos (auto) 0 (0-0.2) 10^3/ul Absolute Nucleated RBC 0 10^3/ul Nucleated RBC % 0.3 INR (Anticoag Therapy) 0.87 (0.77-1.02) APTT 27.1 (26.0-36.3) seconds Sodium 138 (135-145) mmol/L Potassium 3.5 (3.5-5.0) mmol/L Chloride 105 (101-111) mmol/L Carbon Dioxide 27 (22-32) mmol/L Anion Gap 6 (2-11) mmol/L BUN 12 (6-24) mg/dL Creatinine 0.73 (0.51-0.95) mg/dL Est GFR ( Amer) 109.2 (>60) Est GFR (Non-Af Amer) 90.2 (>60) BUN/Creatinine Ratio 16.4 (8-20) Glucose 101 H (70-100) mg/dL Lactic Acid (0.5-2.0) mmol/L Calcium 8.5 L (8.6-10.3) mg/dL Magnesium 1.8 L (1.9-2.7) mg/dL Total Bilirubin 0.30 (0.2-1.0) mg/dL AST 18 (13-39) U/L ALT 21 (7-52) U/L Alkaline Phosphatase 62 (34-104) U/L Total Creatine Kinase 73 (10-223) U/L Troponin I 0.02 (<0.04) ng/mL Total Protein 7.0 (6.4-8.9) g/dL Albumin 3.7 (3.2-5.2) g/dL Globulin 3.3 (2-4) g/dL Albumin/Globulin Ratio 1.1 (1-3) TSH Pending Serum Alcohol Pending 01/18/18 Range/Units 15:48 WBC (3.5-10.8) 10^3/ul RBC (4.00-5.40) 10^6/ul Hgb (12.0-16.0) g/dl Hct (35-47) % MCV (80-97) fL MCH (27-31) pg MCHC (31-36) g/dl RDW (10.5-15) % Plt Count (150-450) 10^3/ul MPV (7.4-10.4) um3 Neut % (Auto) (38-83) % Lymph % (Auto) (25-47) % [place] % (Auto) (0-7) % Eos % (Auto) (0-6) % Baso % (Auto) (0-2) % Absolute Neuts (auto) (1.5-7.7) 10^3/ul Absolute Lymphs (auto) (1.0-4.8) 10^3/ul Absolute Monos (auto) (0-0.8) 10^3/ul Absolute Eos (auto) (0-0.6) 10^3/ul Absolute Basos (auto) (0-0.2) 10^3/ul Absolute Nucleated RBC 10^3/ul Nucleated RBC % INR (Anticoag Therapy) (0.77-1.02) APTT (26.0-36.3) seconds Sodium (135-145) mmol/L Potassium (3.5-5.0) mmol/L Chloride (101-111) mmol/L Carbon Dioxide (22-32) mmol/L Anion Gap (2-11) mmol/L BUN (6-24) mg/dL Creatinine (0.51-0.95) mg/dL Est GFR ( Amer) (>60) Est GFR (Non-Af Amer) (>60) BUN/Creatinine Ratio (8-20) Glucose (70-100) mg/dL Lactic Acid 1.1 (0.5-2.0) mmol/L Calcium (8.6-10.3) mg/dL Magnesium (1.9-2.7) mg/dL Total Bilirubin (0.2-1.0) mg/dL AST (13-39) U/L ALT (7-52) U/L Alkaline Phosphatase (34-104) U/L Total Creatine Kinase (10-223) U/L Troponin I (<0.04) ng/mL Total Protein (6.4-8.9) g/dL Albumin (3.2-5.2) g/dL Globulin (2-4) g/dL Albumin/Globulin Ratio (1-3) TSH Serum Alcohol Result Diagrams: 01/18/18 15:48 01/18/18 15:48 Lab Statement: Any lab studies that have been ordered have been reviewed, and results considered in the medical decision making process. - CT CT A/P CT Interpretation Completed By: Radiologist - 1. No renal calculi or signs of obstructive uropathy. 2. Normal appendix 3. Questionable mild groundglass opacification of the visualized lung bases. Please correlate to signs or symptoms of pulmonary edema or other respiratory dysfunction. ED physician reviewed radiology report. - EKG 15:36 Cardiac Rate: NL - 86 bpm EKG Rhythm: Sinus Rhythm ST Segment: Normal Ectopy: None EKG Interpretation: An EKG at 15:36 reveals nml AV/IV CT, nml QTc, and nml axis. EKG Comparison: No Significant Change - No changes 07/06/17 NIH Scale - NIH Scale Level of Consciousness: Alert/Keenly Responsive Ask Patient the Month and His/Her Age: Both Correct Ask Pt to Open/Close Eyes and Bedspread Inspector/Release Non-Paretic Hand: Both Correctly Best Gaze (Only Horizontal Eye Movement): Normal Visual Field Testing: No Visual Loss Facial Paresis-Pt to Smile & Close Eyes or Grimace Symmetry: Normal/Symmetrical Motor Function - Right Arm: No Drift-Holds 10 Seconds Motor Function - Left Arm: No Drift-Holds 10 Seconds Motor Function - Right Leg: No Drift-Holds 10 Seconds Motor Function - Left Leg: No Drift-Holds 10 Seconds Limb Ataxia-Must be out of Proportion to Weakness Present: Absent Sensory (Use Pinprick to Test Arms/Legs/Trunk/Face): Normal Best Language (Describe Picture, Name Items): No Aphasia Dysarthria (Read Several Words): Normal Extinction and Inattention: No Abnormality Total Score: 0 Re-Evaluation - Re-Evaluation First Eval Re-Evaluation Time: 19:20 Change: Improved Comment: Patient's daughter Blute is with her. Patient states her pain is improved. Patient given results of her CT abdomen and pelvis. Patient wishes to try a dose of Flexeril for her pain. She would also like this prescribed. Patient's daughter is able to drive patient home. Patient will follow-up with Dr. Hilliard. Patient is advised that she has hematuria and this will need definite follow-up if she does not have a urinary tract infection. Course/Dx - Course Course Of Treatment: A CT A/P revealed No renal calculi or signs of obstructive uropathy. Normal appendix Questionable mild groundglass opacification of the visualized lung bases. Please correlate to signs or symptoms of pulmonary edema or other respiratory dysfunction. An EKG revealed 86 bpm, nml AV/IV CT, nml QTc , and nml axis. - Diagnoses Provider Diagnoses: Right flank pain, Seizure, Hematuria Discharge - Sign-Out/Discharge Documenting (check all that apply): Patient Departure - Discharge Plan Condition: Stable Disposition: HOME Prescriptions: Cyclobenzaprine TAB* [Flexeril 10 MG TAB*] 10 mg PO TID PRN #20 tab PRN Reason: Pain Patient Education Materials: Nonepileptic Seizures (ED), Hematuria (ED), Flank Pain (ED) Referrals: Katherine Hilliard MD [Primary Care Provider] - 2 Days Additional Instructions: We did not find a definite cause for your back pain. Your lab tests did not show a cause for the seizure today. You were given toradol and flexeril for your back pain with some relief, and you may continue to take ibuprofen (advil) and the cyclobenzaprine for any continued pain. Your urine showed blood. You may have a urinary tract infection. We will contact you if you need antibiotics, when culture results are available in a few days. If there is no infection in your urine you will need further testing to determine why there is blood in your urine. Return to the ER if any new or worsening symptoms. - Billing Disposition and Condition Condition: STABLE Disposition: Home - Attestation Statements Document Initiated by Scribe: Yes Documenting Scribe: Jessie Valverde Provider For Whom Veliaibe is Documenting (Include Credential): Yanira Mckeon MD Scribe Attestation: Jessie Newsome, scribed for Yanira Mckeon MD on 01/18/18 at 1948.
[2018-01-18 16:31] LABS: Urine Appearance Clear; Urine Blood 2+ (Negative); Urine Color Yellow; Urine Ketones Negative (Negative); Urine Protein Negative (Negative); Urine Red Blood Cell Absent (Absent); Urine Specific Gravity 1.013 (1.010-1.030); Urine Urobilinogen Negative (Negative); Urine White Blood Cell Trace(0-5/hpf) (Absent)
[2018-01-18] MEDS ORDERED: Ketorolac INJ* 30 MG/ML 1 ML VIAL IV PUSH ONE (16:33)
--- NOTE | 2018-01-18 18:55 | RAD ---
CLINICAL HISTORY: Right flank pain and seizure COMPARISON: Ultrasound of the right upper quadrant dated October 08, 2010 TECHNIQUE: Noncontrast CT examination of the abdomen and pelvis from the lung bases through the initial tuberosities. FINDINGS: VISUALIZED LUNG BASES: There is a mild degree of groundglass opacification noted at the bilateral lung bases. ABDOMEN AND PELVIS: Evaluation of the solid organs and vasculature is limited without intravenous contrast. The liver, spleen, pancreas and adrenal glands are grossly normal in appearance. The gallbladder is normal. The kidneys are normal in appearance without focal mass, calcification or signs of hydronephrosis. Evaluation of the gastrointestinal tract is limited without oral contrast. The small and large bowel are not distended.The patient's normal appendix is identified in the right lower quadrant with gas in the lumen measuring 5 mm in diameter (coronal image 45).. There is no gross retroperitoneal or mesenteric lymphadenopathy. Contraceptive coils are noted at the bilateral cornua. Otherwise the pelvic viscera is normal in appearance. The abdominal aorta and iliac arteries are normal in course and diameter. There are no sinister bone lesions. IMPRESSION: 1. No renal calculi or signs of obstructive uropathy. 2. Normal appendix 3. Questionable mild groundglass opacification of the visualized lung bases. Please correlate to signs or symptoms of pulmonary edema or other respiratory dysfunction.
[2018-01-18] MEDS ORDERED: Cyclobenzaprine TAB* 10 MG PO ONE (19:26)
[2018-01-18 20:25] VITALS: BP 112/69
== END 2018-01-18 20:24 | disposition home or self-care (01) ==
LOC: ED 14:45
DX: R56.9 Unspecified convulsions (principal); R10.9 Unspecified abdominal pain; R31.9 Hematuria, unspecified; Z88.3 Allergy status to other anti-infective agents
CPT/HCPCS: 36415; 74176; 80053; 80307; 80320; 81003; 81015; 82550; 83605; 83735; 83880; 84443; 84484; 85025; 85610; 85730; 87077; 87086; 87186; 93005; 96374; 99283; A9270-GY; G0480; J1885

== ENCOUNTER 2018-09-20 00:19 | Emergency (ER) | payer OTHER ==
--- NOTE | 2018-09-20 01:03 | ED ---
HPI Chest Pain - HPI Summary HPI Summary: Patient complains of constant chest pain, SOB or 3 days with cough starting today. States she does not have chest pain, has "heart pain". Denies fever, sore throat, VALLEJO, neck stiffness, N/V/D, abdominal pain, change in urine, change in BM. States possible history of blood clots. Denies OCPs, unilateral leg pain, recent surgery or trauma, recent long travel, hemoptysis, history of or cancer. Medical history is asthma. Patient not good historian. - History of Current Complaint Chief Complaint: EDChestPainROMI Time Seen by Provider: 09/20/18 00:55 Hx Obtained From: Patient Onset/Duration: Started Days Ago Timing: Constant Initial Severity: Severe Current Severity: Severe Pain Intensity: 9 Pain Scale Used: 0-10 Numeric Chest Pain Location: Left Anterior Character: Heaviness Aggravating Factor(s): Nothing Alleviating Factor(s): Nothing Associated Signs and Symptoms: Positive: Chest Pain, Shortness of Breath - Additional Pertinent History Primary Care Physician: [facility] - Allergy/Home Medications Allergies/Adverse Reactions: Allergies Allergy/AdvReac Type Severity Reaction Status Date / Time ciprofloxacin Allergy Mild Itching Verified 01/07/18 13:39 Home Medications: Home Medications Acetaminophen [Tylenol] 325 mg PO QID PRN 09/20/18 [History Confirmed 09/20/18] PMH/Surg Hx/FS Hx/Imm Hx Endocrine/Hematology History: Denies: Hx Diabetes Cardiovascular History: Denies: Hx Hypertension, Hx Pacemaker/ICD Respiratory History: Denies: Hx Asthma Sensory History: Reports: Hx Contacts or Glasses Denies: Hx Hearing Aid Opthamlomology History: Reports: Hx Contacts or Glasses Neurological History: Reports: Hx Migraine, Hx Seizures Psychiatric History: Reports: Hx Anxiety, Hx Panic Disorder - ANXIETY - Surgical History Surgery Procedure, Year, and Place: TUBAL LIGATION - Immunization History Date of Tetanus Vaccine: UTD Date of Influenza Vaccine: 2012 Infectious Disease History: No Infectious Disease History: Denies: Traveled Outside the [place] in Last 30 Days - Family History Known Family History: Positive: None Negative: Cardiac Disease, Hypertension, Diabetes Family History: R & n/C - Social History Alcohol Use: Occasionally Hx Substance Use: No Substance Use Type: Reports: None Hx Tobacco Use: No Smoking Status (MU): Never Smoked Tobacco Review of Systems Constitutional: Negative Eyes: Negative ENT: Negative Positive: Chest Pain Positive: Shortness Of Breath Gastrointestinal: Negative Genitourinary: Negative Musculoskeletal: Negative Skin: Negative Neurological: Negative Psychological: Normal All Other Systems Reviewed And Are Negative: Yes Physical Exam - Summary Physical Exam Summary: Lung sounds clear to auscultation bilaterally. RRR. Abdomen soft nontender. Peripheral edema. Triage Information Reviewed: Yes Vital Signs On Initial Exam: Initial Vitals Temp Pulse Resp BP Pulse Ox 98.5 F 96 18 119/91 99 09/20/18 00:52 09/20/18 00:52 09/20/18 00:52 09/20/18 00:52 09/20/18 00:52 Vital Signs Reviewed: Yes Appearance: Positive: Well-Appearing Skin: Positive: Warm Head/Face: Positive: Normal Head/Face Inspection Eyes: Positive: Normal ENT: Positive: Normal ENT inspection Neck: Positive: Supple Respiratory/Lung Sounds: Positive: Clear to Auscultation Cardiovascular: Positive: Normal Abdomen Description: Positive: Nontender Musculoskeletal: Positive: Normal Neurological: Positive: Normal Psychiatric: Positive: Normal AVPU Assessment: Alert - Andrea Coma Scale Best Eye Response: 4 - Spontaneous Best Motor Response: 6 - Obeys Commands Best Verbal Response: 5 - Oriented Coma Scale Total: 15 Diagnostics - Vital Signs Vital Signs Temp Pulse Resp BP Pulse Ox 09/20/18 00:52 98.5 F 96 18 119/91 99 - Laboratory Result Diagrams: 09/20/18 01:05 09/20/18 01:05 Lab Statement: Any lab studies that have been ordered have been reviewed, and results considered in the medical decision making process. Chest Pain Course/Dx - Course Course Of Treatment: Patient complains of constant chest pain, SOB or 3 days with cough starting today. States she does not have chest pain, has "heart pain ". Denies fever, sore throat, VALLEJO, neck stiffness, N/V/D, abdominal pain, change in urine, change in BM. States possible history of blood clots. Denies OCPs, unilateral leg pain, recent surgery or trauma, recent long travel, hemoptysis, history of or cancer. Medical history is asthma. Patient not good historian. Physical exam:Lung sounds clear to auscultation bilaterally. RRR. Abdomen soft nontender. Peripheral edema. Vital signs within normal limits. Potassium 3.0. Lactic 2.7. Patient given 2 L normal saline. Labs otherwise unremarkable. D-dimer negative. Troponin is negative. EKG sinus rhythm. Chest x-ray negative for acute process. Patient advised to follow-up with primary care.. Patient understands and approves plan. - Diagnoses Provider Diagnoses: Atypical chest pain, Hypokalemia, Anxiety Discharge - Sign-Out/Discharge Documenting (check all that apply): Patient Departure Patient Received Moderate/Deep Sedation with Procedure: No - Discharge Plan Condition: Stable Disposition: HOME Patient Education Materials: Hypokalemia (ED), Anxiety (ED) Referrals: Katherine Hilliard MD [Primary Care Provider] - Additional Instructions: Follow-up with primary care for further evaluation of insomnia, anxiety, chest pain, hypokalemia. Return to the ED for any new or worsening symptoms. - Billing Disposition and Condition Condition: STABLE Disposition: Home
[2018-09-20 01:15] LABS: ABS Eosinophils 0.2 10^3/ul (0-0.6); ABS Lymphocytes 1.9 10^3/ul (1.0-4.8); ABS Monocytes 0.6 10^3/ul (0-0.8); ABS Neutrophils 5.6 10^3/ul (1.5-7.7); Eosinophil % 1.9 %; Hematocrit 40 % (35-47); Hemoglobin 12.8 g/dL (12.0-16.0); Mean Corpuscular HGB Conc 32 g/dL (31-36); Mean Corpuscular Hemoglobin 24 pg (27-31); Mean Corpuscular Volume 75 fL (80-97); Platelet Count 160 10^3/uL (150-450); Red Blood Count 5.42 10^6 /uL (3.70-4.87); Red Cell Distribution Width 15 % (10.5-15); White Blood Count 8.3 10^3/uL (3.5-10.8)
[2018-09-20 01:34] LABS: ALT 23 U/L (7-52); AST 20 U/L (13-39); Albumin 3.8 g/dL (3.2-5.2); Albumin/Globulin Ratio 1.1 (1-3); Alkaline Phosphatase 60 U/L (34-104); Anion Gap 10 mmol/L (2-11); BUN/Creatinine Ratio 8.6 (8-20); Blood Urea Nitrogen 6 mg/dL (6-24); CO2 Carbon Dioxide 23 mmol/L (22-32); Calcium 9.1 mg/dL (8.6-10.3); Chloride 106 mmol/L (101-111); EGFR African American 113.9 (>60); EGFR Non-African American 94.2 (>60); Globulin 3.4 g/dL (2-4); Glucose 140 mg/dL (70-100); Sodium 139 mmol/L (135-145); Total Protein 7.2 g/dL (6.4-8.9)
[2018-09-20 01:42] LABS: HCG Pregnancy < 0.60 mIU/mL
[2018-09-20] MEDS ORDERED: NS 0.9% 1000 ML** 1,000 ML IV ONE ×2 (01:42→03:26)
[2018-09-20] MEDS ORDERED: Potassium Chlor TAB* 20 MEQ TAB.ER PO ONE (01:46)
[2018-09-20 01:56] LABS: TSH (Thyroid Stimulating Horm) 2.12 mcIU/mL (0.34-5.60)
[2018-09-20 01:57] LABS: Urine Appearance Clear; Urine Bacteria Absent (Absent); Urine Bilirubin Negative (Negative); Urine Blood Negative (Negative); Urine Color Colorless; Urine Glucose Negative (Negative); Urine Ketones Negative (Negative); Urine Nitrite Negative (Negative); Urine Protein Negative (Negative); Urine Red Blood Cell Absent (Absent); Urine Specific Gravity 1.001 (1.010-1.030); Urine Urobilinogen Negative (Negative); Urine White Blood Cell Absent (Absent)
[2018-09-20 02:21] LABS: Urine Benzodiazepine Screen None Detected (None Detect); Urine Opiates Screen None Detected (None Detect)
[2018-09-20 03:04] LABS: Influenza A Molecular NEGATIVE (Negative); Influenza B Molecular NEGATIVE (Negative)
[2018-09-20] MEDS ORDERED: hydrOXYzine HCL TAB* 50 MG PO ONE (03:05)
[2018-09-20 05:09] VITALS: BP 117/89
--- NOTE | 2018-09-22 05:44 | PN ---
Progress Note - Progress Note Date of Service: 09/20/18 Note: Patient was seen in the ED for chest pain No complaints of UTI symptoms Urine culture preliminary grew Escherichia coli 75-100,000 This patient was asymptomatic, she will not be placed on antibiotics at this time
== END 2018-09-20 05:08 | disposition home or self-care (01) ==
LOC: ED 00:19
DX: F41.9 Anxiety disorder, unspecified (principal); R94.31 Abnormal electrocardiogram [ECG] [EKG]; R07.89 Other chest pain; E87.6 Hypokalemia; Z88.3 Allergy status to other anti-infective agents
CPT/HCPCS: 36415; 71046; 80053; 80307; 81003; 81015; 83605; 84443; 84484; 84702; 85025; 85379; 87077; 87086; 87186; 93005; 96360; 96361; 99284; A9270-GY

== ENCOUNTER 2018-09-26 06:13 | Emergency (ER) | payer OTHER ==
[2018-09-26] MEDS ORDERED: Ondansetron ODT TAB* 4 MG SL ONE (06:22)
[2018-09-26] MEDS ORDERED: Cephalexin CAP* 500 MG PO ONE (06:32)
[2018-09-26] MEDS ORDERED: Ondansetron INJ* 2 MG/ML VIAL IV ONE (06:48)
[2018-09-26] MEDS ORDERED: NS 0.9% 1000 ML** 1,000 ML IV ONE (06:48)
[2018-09-26 06:53] LABS: ABS Eosinophils 0.1 10^3/ul (0-0.6); ABS Lymphocytes 1.4 10^3/ul (1.0-4.8); ABS Monocytes 0.6 10^3/ul (0-0.8); ABS Neutrophils 5.6 10^3/ul (1.5-7.7); Eosinophil % 1.1 %; Hematocrit 40 % (35-47); Hemoglobin 12.6 g/dL (12.0-16.0); Lymphocyte % 17.8 %; Mean Corpuscular HGB Conc 32 g/dL (31-36); Mean Corpuscular Hemoglobin 23 pg (27-31); Mean Corpuscular Volume 74 fL (80-97); Mean Platelet Volume 9.9 fL (7.4-10.4); Nucleated Red Blood Cells % 0.1; Platelet Count 171 10^3/uL (150-450); Red Blood Count 5.37 10^6 /uL (3.70-4.87); Red Cell Distribution Width 15 % (10.5-15); White Blood Count 7.7 10^3/uL (3.5-10.8)
[2018-09-26 07:22] LABS: Albumin 3.7 g/dL (3.2-5.2); Albumin/Globulin Ratio 1.1 (1-3); BUN/Creatinine Ratio 7.5 (8-20); Calcium 9.1 mg/dL (8.6-10.3); EGFR African American 119.8 (>60); Globulin 3.3 g/dL (2-4); Potassium 3.1 mmol/L (3.5-5.0); Total Bilirubin 0.6 mg/dL (0.2-1.0)
[2018-09-26] MEDS ORDERED: Potassium Chlor TAB* 20 MEQ TAB.ER PO ONE (07:27)
--- NOTE | 2018-09-26 07:34 | ED ---
Nausea/Vomiting/Diarrhea HPI - HPI Summary HPI Summary: Patient is a 38-year-old female presenting to the ED with inability to sleep, nausea and 2 episodes of vomiting this morning. She was seen here in the ED last week for chest pain, which has since resolved. She was noted to have a positive UA and was called a few times this week, however with no answer. Notes specify she was to be placed on antibiotics for her 75-100,000 Escherichia coli count on urine culture final. She denies any back pain. She denies any neck stiffness, photophobia, headache. She states symptoms began last evening. Denies UA symptoms or back pain. Denies other concerns. Denies fevers, but endorses sweats and chills intermittently throughout the night. - History of Current Complaint Chief Complaint: EDGeneral Stated Complaint: "CANT SLEEP/CHILLS" PER PT Time Seen by Provider: 09/26/18 06:21 Hx Obtained From: Patient ?: No Onset/Duration: Sudden Onset Timing: Constant Severity Initially: Moderate Severity Currently: Moderate Pain Intensity: 0 Pain Scale Used: 0-10 Numeric Aggravating Factor(s): Nothing Alleviating Factor(s): Nothing Vomiting Frequency: Every 3-4 hours Nausea/Vomiting Duration: 0-12 hours Diarrhea Presence: No - Risk Factors Influenza Risk Factors: Negative Surgical Obstruction Risk Factor(s): Negative - Allergies/Home Medications Allergies/Adverse Reactions: Allergies Allergy/AdvReac Type Severity Reaction Status Date / Time ciprofloxacin Allergy Mild Itching Verified 01/07/18 13:39 Pork/Porcine Containing Allergy Rash Verified 09/26/18 06:16 Products PMH/Surg Hx/FS Hx/Imm Hx Previously Healthy: Yes Endocrine/Hematology History: Denies: Hx Diabetes Cardiovascular History: Denies: Hx Hypertension, Hx Pacemaker/ICD Respiratory History: Denies: Hx Asthma Sensory History: Reports: Hx Contacts or Glasses Denies: Hx Hearing Aid Opthamlomology History: Reports: Hx Contacts or Glasses Neurological History: Reports: Hx Migraine, Hx Seizures Psychiatric History: Reports: Hx Anxiety, Hx Panic Disorder - ANXIETY - Surgical History Surgery Procedure, Year, and Place: TUBAL LIGATION - Immunization History Date of Tetanus Vaccine: UTD Date of Influenza Vaccine: 2012 Hx Pertussis Vaccination: No Immunizations Up to Date: Yes Infectious Disease History: No Infectious Disease History: Denies: Traveled Outside the [place] in Last 30 Days - Family History Known Family History: Positive: None Negative: Cardiac Disease, Hypertension, Diabetes Family History: R & n/C - Social History Occupation: Employed Full-time Lives: With Family Alcohol Use: Occasionally Hx Substance Use: No Substance Use Type: Reports: None Hx Tobacco Use: No Smoking Status (MU): Never Smoked Tobacco Review of Systems Constitutional: Negative Negative: Fever, Chills, Fatigue, Skin Diaphoresis Negative: Palpitations, Chest Pain Negative: Shortness Of Breath, Cough Positive: Vomiting, Nausea Genitourinary: Negative Positive: no symptoms reported, see HPI Negative: Arthralgia, Myalgia Skin: Negative Neurological: Negative All Other Systems Reviewed And Are Negative: Yes Physical Exam Triage Information Reviewed: Yes Vital Signs On Initial Exam: Initial Vitals Temp Pulse Resp BP Pulse Ox 98 F 96 32 133/94 99 09/26/18 06:15 09/26/18 06:15 09/26/18 06:15 09/26/18 06:15 09/26/18 06:15 Vital Signs Reviewed: Yes Appearance: Positive: Ill-Appearing Skin: Positive: Diaphoretic Head/Face: Positive: Normal Head/Face Inspection Eyes: Positive: EOMI, Conjunctiva Clear Neck: Positive: Supple, No Lymphadenopathy Respiratory/Lung Sounds: Positive: Clear to Auscultation, Breath Sounds Present Cardiovascular: Positive: RRR, Pulses are Symmetrical in both Upper and Lower Extremities Musculoskeletal: Positive: Normal, Strength/ROM Intact Psychiatric: Positive: Affect/Mood Appropriate Diagnostics - Vital Signs Vital Signs Temp Pulse Resp BP Pulse Ox 09/26/18 06:15 98 F 96 32 133/94 99 - Laboratory Lab Results: Lab Results 09/26/18 09/26/18 Range/Units 06:36 06:36 WBC 7.7 (3.5-10.8) 10^3/uL RBC 5.37 H (3.70-4.87) 10^6 /uL Hgb 12.6 (12.0-16.0) g/dL Hct 40 (35-47) % MCV 74 L (80-97) fL MCH 23 L (27-31) pg MCHC 32 (31-36) g/dL RDW 15 (10.5-15) % Plt Count 171 (150-450) 10^3/uL MPV 9.9 (7.4-10.4) fL Neut % (Auto) 73.1 % Lymph % (Auto) 17.8 % [place] % (Auto) 7.5 % Eos % (Auto) 1.1 % Baso % (Auto) 0.5 % Absolute Neuts (auto) 5.6 (1.5-7.7) 10^3/ul Absolute Lymphs (auto) 1.4 (1.0-4.8) 10^3/ul Absolute Monos (auto) 0.6 (0-0.8) 10^3/ul Absolute Eos (auto) 0.1 (0-0.6) 10^3/ul Absolute Basos (auto) 0.0 (0-0.2) 10^3/ul Absolute Nucleated RBC 0.0 10^3/ul Nucleated RBC % 0.1 Sodium 137 (135-145) mmol/L Potassium 3.1 L (3.5-5.0) mmol/L Chloride 106 (101-111) mmol/L Carbon Dioxide 20 L (22-32) mmol/L Anion Gap 11 (2-11) mmol/L BUN 5 L (6-24) mg/dL Creatinine 0.67 (0.51-0.95) mg/dL Est GFR ( Amer) 119.8 (>60) Est GFR (Non-Af Amer) 99.0 (>60) BUN/Creatinine Ratio 7.5 L (8-20) Glucose 176 H (70-100) mg/dL Calcium 9.1 (8.6-10.3) mg/dL Total Bilirubin 0.60 (0.2-1.0) mg/dL AST 22 (13-39) U/L ALT 35 (7-52) U/L Alkaline Phosphatase 63 (34-104) U/L C-Reactive Protein 5.00 (<8.01) mg/L Total Protein 7.0 (6.4-8.9) g/dL Albumin 3.7 (3.2-5.2) g/dL Globulin 3.3 (2-4) g/dL Albumin/Globulin Ratio 1.1 (1-3) Result Diagrams: 09/26/18 06:36 09/26/18 06:36 Lab Statement: Any lab studies that have been ordered have been reviewed, and results considered in the medical decision making process. Naus/Vom/Diarrhea Course/Dx - Course Course Of Treatment: Patient is evaluated for nausea, 2 episodes vomiting, sweats and chills and inability to sleep. Symptoms began last night. She has not taken any medication [id number] for relief. On arrival into the ED, vital signs are stable except for respirations at 32. Labs obtained and she is given Zofran by mouth. Soon following, she had one episode of emesis. IV placed and normal saline given including 4 mg Zofran. Impression of chest x- ray shows fine interstitial opacification suggestive of an interstitial process of uncertain acuity. Patient's lungs are clear on examination. However due to her fevers, sweats, chills, nausea and vomiting as well as this chest x-ray read , she will be placed on azithromycin. She was given Keflex prior to results in the ED for her positive UA from last week. She will not take the Keflex and instead take the azithromycin. She states she is feeling improved after 1 L normal saline and Zofran. She still states she is fatigued however. I have encouraged her to sleep as much as possible, take Tylenol and ibuprofen intermittently, use Zofran as needed for any nausea and to take the azithromycin as prescribed. She will return to the ED if she has any worsening or changing symptoms. - Differential Dx/Diagnosis Differential Diagnoses - Female: Other - Nausea, vomiting, UTI, insomnia, pneumonia Provider Diagnosis: Nausea and vomiting Condition At Discharge: Stable Discharge - Sign-Out/Discharge Documenting (check all that apply): Patient Departure Patient Received Moderate/Deep Sedation with Procedure: No - Discharge Plan Condition: Stable Disposition: HOME Prescriptions: Azithromyxin NUNU (NF) [Z-Nunu (Zithromax) 250 mg tabs #6] 2 tab PO .TODAY, THEN 1 DAILY #6 tab Ondansetron ODT TAB* [Zofran 4 MG Odt TAB*] 4 mg PO Q6H PRN #12 tab.odt MDD 4 PRN Reason: Nausea Patient Education Materials: Acute Nausea and Vomiting (ED), Pneumonia (ED) Forms: *Work Release Referrals: Katherine Hilliard MD [Primary Care Provider] - Additional Instructions: Take azithromycin as prescribed Do not take the Keflex that was previously prescribed last week Rest Fluids Eat small amounts at a time Tylenol 650mg and ibuprofen 600mg Take these intermittently - every 3 hours Sleep as much as possible Follow up with PCP in 3-5 days for repeat chest xray Return to the ED for any worsening/changing symptoms - Billing Disposition and Condition Condition: STABLE Disposition: Home
[2018-09-26 07:56] LABS: Urine Appearance Cloudy; Urine Bacteria 1+ (Absent); Urine Bilirubin Negative (Negative); Urine Blood Negative (Negative); Urine Color Straw; Urine Glucose Negative (Negative); Urine Ketones Negative (Negative); Urine Nitrite Negative (Negative); Urine Protein Negative (Negative); Urine Red Blood Cell Trace(0-2/hpf) (Absent); Urine Specific Gravity 1.001 (1.010-1.030); Urine Squamous Epithelial Cell Present (Absent); Urine Urobilinogen Negative (Negative); Urine White Blood Cell Trace(0-5/hpf) (Absent)
[2018-09-26 09:59] VITALS: BP 125/84
== END 2018-09-26 09:58 | disposition home or self-care (01) ==
LOC: ED 06:13
DX: R11.2 Nausea with vomiting, unspecified (principal); R91.8 Other nonspecific abnormal finding of lung field
CPT/HCPCS: 36415; 71046; 80053; 81003; 81015; 85025; 86140; 87077; 87086; 87186; 96361; 96374; 96375; 99283; A9270-GY; J2405

== ENCOUNTER 2019-08-06 02:29 | Emergency (ER) | payer OTHER ==
--- NOTE | 2019-08-06 02:49 | ED ---
Shortness of Breath - HPI Summary HPI Summary: Per triage, "pt was tested for COVID 2 days ago, pt was found rolling around on a mattress on the floor complaining of SOB, stopped rolling and becomes "stiff" briefly per EMS. family reported this as a seizure EMS states that pt did not appear post ictal." - History of Current Complaint Chief Complaint: EDShortnessOfBreath Time Seen by Provider: 08/06/19 02:31 Hx Obtained From: EMS Onset/Duration: Sudden Onset Aggravating Factors: Nothing Alleviating Factors: Nothing Associated Signs & Symptoms: Cough (Nonproductive) - Dry cough. - Allergy/Home Medications Allergies/Adverse Reactions: Allergies Allergy/AdvReac Type Severity Reaction Status Date / Time ciprofloxacin Allergy Mild Itching Verified 08/06/19 03:00 Pork/Porcine Containing Allergy Rash Verified 08/06/19 03:00 Products Home Medications: Home Medications Eletriptan 40 mg (Nf)* [Relpax (NF)] 40 mg PO DAILY PRN 07/06/17 [History Confirmed 08/06/19] Nortriptyline CAP* [Nortriptylline CAP*] 30 mg PO BEDTIME 07/06/17 [History Confirmed 08/06/19] Propranolol LA CAP* [Inderal LA CAP*] 60 mg PO BID 07/06/17 [History Confirmed 08/06/19] Acetaminophen [Tylenol] 325 mg PO QID PRN 09/20/18 [History Confirmed 08/06/19] Ondansetron ODT TAB* [Zofran 4 MG Odt TAB*] 4 mg PO Q6H PRN #12 tab.odt MDD 4 [Rx Confirmed 08/06/19] PMH/Surg Hx/FS Hx/Imm Hx Endocrine/Hematology History: Denies: Hx Diabetes Cardiovascular History: Denies: Hx Hypertension, Hx Pacemaker/ICD Respiratory History: Denies: Hx Asthma Sensory History: Reports: Hx Contacts or Glasses Denies: Hx Hearing Aid Opthamlomology History: Reports: Hx Contacts or Glasses Neurological History: Reports: Hx Migraine, Hx Seizures Psychiatric History: Reports: Hx Anxiety, Hx Panic Disorder - ANXIETY - Surgical History Surgery Procedure, Year, and Place: TUBAL LIGATION - Immunization History Date of Tetanus Vaccine: UTD Date of Influenza Vaccine: 2012 Infectious Disease History: Unable to Obtain/Confirm Infectious Disease History: Comment Only: Traveled Outside the [place] in Last 30 Days - unknown - Family History Known Family History: Positive: None Negative: Cardiac Disease, Hypertension, Diabetes Family History: R & n/C - Social History Alcohol Use: Occasionally Hx Substance Use: No Substance Use Type: Reports: None Hx Tobacco Use: No Smoking Status (MU): Never Smoked Tobacco Review of Systems Negative: Fever - Patient's temperature was 98 F, no fever. Positive: Shortness Of Breath Neurological/Mental Status: Other - Episode of stiffness. All Other Systems Reviewed And Are Negative: Yes Physical Exam - Summary Physical Exam Summary: Constitutional: Well-developed, Well-nourished, Alert. (-) Distressed. Appears fatigued with a dry cough. Skin: Warm, Dry HENT: Normocephalic; Atraumatic Eyes: Conjunctiva normal Neck: Musculoskeletal ROM normal neck. (-) JVD, (-) Stridor, (-) Tracheal deviation Cardio: Rhythm regular, rate normal, Heart sounds normal; Intact distal pulses; The pedal pulses are 2+ and symmetric. Radial pulses are 2+ and symmetric. (-) Murmur Pulmonary/Chest wall: Effort normal. (-) Respiratory distress, (-) Wheezes, (-) Rales Abd: Soft, (-) tenderness, (-) Distension, (-) Guarding, (-) Rebound Musculoskeletal: (-) Edema Lymph: (-) Cervical adenopathy Neuro: Alert, Oriented x3 Psych: Mood and affect Normal Triage Information Reviewed: Yes Vital Signs On Initial Exam: Initial Vitals Temp Pulse Resp BP Pulse Ox 98 F 94 22 126/79 99 08/06/19 02:35 08/06/19 02:35 08/06/19 02:35 08/06/19 02:35 08/06/19 02:35 Vital Signs Reviewed: Yes Procedures - Sedation Patient Received Moderate/Deep Sedation with Procedure: No Diagnostics - Vital Signs Vital Signs Temp Pulse Resp BP Pulse Ox 08/06/19 02:35 98 F 94 22 126/79 99 - Laboratory Lab Statement: Any lab studies that have been ordered have been reviewed, and results considered in the medical decision making process. - Radiology CXR Summary of Radiographic Findings: NAD found in CXR. This CXR was reviewed and interpreted by Dr. Drew. Course/Dx - Course Course Of Treatment: Per triage, "pt was tested for COVID 2 days ago, pt was found rolling around on a mattress on the floor complaining of SOB, stopped rolling and becomes "stiff" briefly per EMS. family reported this as a seizure EMS states that pt did not appear post ictal." Patient's physical exam was postive for fatigue and a dry cough. NAD was found in patients CXR pending official report. Patient was discharged to home with a followup with her PCP within 3 days. Patient will receive followup regarding COVID-19 results. No seizure activity noted in ED. Signs and symptoms consistent with URI. Chest x- ray: NAD. COVID results pending. Patient comfortable with discharge home. - Diagnoses Provider Diagnoses: Upper respiratory infection Discharge ED - Sign-Out/Discharge Documenting (check all that apply): Patient Departure - discharge - Discharge Plan Condition: Stable Disposition: HOME Patient Education Materials: Upper Respiratory Infection (ED) Forms: COVID-19 Tested & Isolation Referrals: Katherine Hilliard MD [Primary Care Provider] - 3 Days Additional Instructions: Please return to the ED for any new or worsening symptom. Please followup with your primary care physician within 3 days. Please practice isolation per COVID19 instructions pending official COVID19 results. - Billing Disposition and Condition Condition: STABLE Disposition: Home - Attestation Statements Document Initiated by Ileana: Yes Documenting Scribe: Maria Eugenia Sosa Provider For Whom Ileana is Documenting (Include Credential): Jacob Drew DO Scribe Attestation: Maria Eugenia Newsome scribed for Jacob Drew DO on at 1910. Scribe Documentation Reviewed: Yes Provider Attestation: The documentation as recorded by the melissaibjay, Maria Eugenia Sosa accurately reflects the service I personally performed and the decisions made by , Jacob Drew DO Status of Scribjay Document: Viewed
[2019-08-06 04:50] VITALS: BP 119/83
== END 2019-08-06 04:50 | disposition home or self-care (01) ==
LOC: ED 02:29
DX: J06.9 Acute upper respiratory infection, unspecified (principal); R05 Cough; F41.9 Anxiety disorder, unspecified; Z79.899 Other long term (current) drug therapy; R06.02 Shortness of breath; Z20.828 Contact with and (suspected) exposure to other viral communicable diseases
CPT/HCPCS: 71045; 99282

== ENCOUNTER 2019-08-25 19:29 | Emergency (ER) | payer OTHER ==
[2019-08-25] MEDS ORDERED: Morphine 4 MG/ML VIAL (1 ml) 4 MG/ML VIAL IV ONE (19:45)
[2019-08-25] MEDS ORDERED: Ondansetron INJ* 2 MG/ML VIAL IV ONE (19:45)
[2019-08-25] MEDS ORDERED: NS 0.9% 1000 ML** 1,000 ML IV ONE (19:45)
--- NOTE | 2019-08-25 19:51 | ED ---
Abdominal Pain/Female - HPI Summary HPI Summary: Patient complains of diffuse abdominal pain worsened right lower quadrant starting this morning, and right lower back pain starting yesterday. Abdominal pain described as intermittent, 02/23, denies prior history of same. Pain described as worse with eating. Denies fever, cough, sore throat, CP, SOB , N/V/D, change in urine, change in BM, vaginal symptoms. Patient tolerating by mouth intake. Last meal 10 PM. - History of Current Complaint Chief Complaint: EDAbdPain Stated Complaint: ABDOMINAL PAIN PER EMS Time Seen by Provider: 08/25/19 19:35 Hx Obtained From: Patient Onset/Duration: Sudden Onset, Lasting Hours Timing: Intermittent Episode Lasting Severity Initially: Severe Severity Currently: Severe Pain Intensity: 10 Pain Scale Used: 0-10 Numeric Location: Diffuse Radiates to: Back Aggravating Factor(s): Food Alleviating Factor(s): Nothing Associated Signs and Symptoms: Positive: Back Pain Allergies/Adverse Reactions: Allergies Allergy/AdvReac Type Severity Reaction Status Date / Time ciprofloxacin Allergy Mild Itching Verified 08/25/19 20:18 Pork/Porcine Containing Allergy Rash Verified 08/25/19 20:18 Products Home Medications: Home Medications Eletriptan 40 mg (Nf)* [Relpax (NF)] 40 mg PO DAILY PRN 07/06/17 [History Confirmed 08/25/19] Nortriptyline CAP* [Nortriptylline CAP*] 30 mg PO BEDTIME 07/06/17 [History Confirmed 08/25/19] Propranolol LA CAP* [Inderal LA CAP*] 60 mg PO BID 07/06/17 [History Confirmed 08/25/19] Acetaminophen [Tylenol] 325 mg PO QID PRN 09/20/18 [History Confirmed 08/25/19] Albuterol HFA INHALER* [Ventolin HFA Inhaler*] 2 puff INH Q4H PRN 08/25/19 [ History Confirmed 08/25/19] Escitalopram * [Lexapro *] 20 mg PO DAILY 08/25/19 [History Confirmed 08/25/19] traZODone TAB* [Desyrel TAB*] 25 - 50 mg PO BEDTIME PRN 08/25/19 [History Confirmed 08/25/19] PMH/Surg Hx/FS Hx/Imm Hx Endocrine/Hematology History: Denies: Hx Diabetes Cardiovascular History: Denies: Hx Hypertension, Hx Pacemaker/ICD Respiratory History: Denies: Hx Asthma History: Denies: Hx Dialysis Sensory History: Reports: Hx Contacts or Glasses Denies: Hx Hearing Aid Opthamlomology History: Reports: Hx Contacts or Glasses EENT History: Denies: Hx Deafness Neurological History: Reports: Hx Migraine, Hx Seizures Psychiatric History: Reports: Hx Anxiety, Hx Panic Disorder - ANXIETY - Surgical History Surgery Procedure, Year, and Place: TUBAL LIGATION - Immunization History Date of Tetanus Vaccine: UTD Date of Influenza Vaccine: 2012 Infectious Disease History: No Infectious Disease History: Denies: Traveled Outside the [place] in Last 30 Days - Family History Known Family History: Positive: None Negative: Cardiac Disease, Hypertension, Diabetes Family History: R & n/C - Social History Alcohol Use: None Hx Substance Use: No Substance Use Type: Reports: None Hx Tobacco Use: No Smoking Status (MU): Never Smoked Tobacco Review of Systems Constitutional: Negative Eyes: Negative ENT: Negative Cardiovascular: Negative Respiratory: Negative Positive: Abdominal Pain Genitourinary: Negative Musculoskeletal: Negative Skin: Negative Neurological/Mental Status: Negative Psychological: Normal All Other Systems Reviewed And Are Negative: Yes Physical Exam - Summary Physical Exam Summary: Mildly tender right lower quadrant. Abdominal exam otherwise unremarkable. Triage Information Reviewed: Yes Vital Signs On Initial Exam: Initial Vitals Temp Pulse Resp BP Pulse Ox 98.6 F 97 22 140/91 99 08/25/19 19:33 08/25/19 19:33 08/25/19 19:33 08/25/19 19:33 08/25/19 19:33 Vital Signs Reviewed: Yes Appearance: Positive: Well-Appearing Skin: Positive: Warm Head/Face: Positive: Normal Head/Face Inspection Eyes: Positive: Normal Neck: Positive: Supple Respiratory/Lung Sounds: Positive: Clear to Auscultation Cardiovascular: Positive: Normal Abdomen Description: Positive: Other: Musculoskeletal: Positive: Normal Neurological: Positive: Normal Psychiatric: Positive: Normal AVPU Assessment: Alert - Andrea Coma Scale Best Eye Response: 4 - Spontaneous Best Motor Response: 6 - Obeys Commands Best Verbal Response: 5 - Oriented Coma Scale Total: 15 Procedures - Sedation Patient Received Moderate/Deep Sedation with Procedure: No Diagnostics - Vital Signs Vital Signs Temp Pulse Resp BP Pulse Ox 08/25/19 19:33 98.6 F 97 22 140/91 99 - Laboratory Result Diagrams: 08/25/19 19:46 08/25/19 19:46 Lab Statement: Any lab studies that have been ordered have been reviewed, and results considered in the medical decision making process. Abdominal Pain Fem Course/Dx - Course Course Of Treatment: Patient complains of diffuse abdominal pain worsened right lower quadrant starting this morning, and right lower back pain starting yesterday. Abdominal pain described as intermittent, 02/23, denies prior history of same. Pain described as worse with eating. Denies fever, cough, sore throat, CP, SOB, N/V/D, change in urine, change in BM, vaginal symptoms. Patient tolerating by mouth intake. Last meal 3 PM. Vital signs within normal limits. Labs unremarkable. Urine negative. Pelvic ultrasound negative. CT abdomen and pelvis unremarkable except for 11 mm cyst on left ovary - Diagnoses Provider Diagnoses: Abdominal pain Discharge ED - Sign-Out/Discharge Documenting (check all that apply): Patient Departure - Discharge Plan Condition: Stable Disposition: HOME Patient Education Materials: Acute Abdominal Pain (ED) Referrals: Katherine Hilliard MD [Primary Care Provider] - Additional Instructions: Alternate ibuprofen 600 mg with Tylenol 650 mg every 3 hours for pain. Follow- up with primary care. Return to the ED for any new or worsening symptoms. - Billing Disposition and Condition Condition: STABLE Disposition: Home
[2019-08-25 19:55] LABS: ABS Eosinophils 0.2 10^3/ul (0-0.6); ABS Lymphocytes 1.9 10^3/ul (1.0-4.8); ABS Monocytes 0.7 10^3/ul (0-0.8); ABS Neutrophils 3.4 10^3/ul (1.5-7.7); Eosinophil % 3.2 %; Hematocrit 36 % (35-47); Hemoglobin 11.3 g/dL (12.0-16.0); Lymphocyte % 30.1 %; Mean Corpuscular HGB Conc 32 g/dL (31-36); Mean Corpuscular Hemoglobin 23 pg (27-31); Mean Corpuscular Volume 72 fL (80-97); Mean Platelet Volume 9.4 fL (7.4-10.4); Nucleated Red Blood Cells % 0.1; Platelet Count 195 10^3/uL (150-450); Red Blood Count 4.98 10^6 /uL (3.70-4.87); Red Cell Distribution Width 17 % (10-15); White Blood Count 6.2 10^3/uL (3.5-10.8)
[2019-08-25 20:11] LABS: ALT 34 U/L (7-52); AST 22 U/L (13-39); Albumin 3.4 g/dL (3.2-5.2); Albumin/Globulin Ratio 1.1 (1-3); Alkaline Phosphatase 57 U/L (34-104); Anion Gap 6 mmol/L (2-11); BUN/Creatinine Ratio 24.6 (8-20); Blood Urea Nitrogen 14 mg/dL (6-24); CO2 Carbon Dioxide 23 mmol/L (22-32); Calcium 8.4 mg/dL (8.6-10.3); Chloride 108 mmol/L (101-111); EGFR African American 143.6 (>60); EGFR Non-African American 118.7 (>60); Glucose 85 mg/dL (70-100); Potassium 3.6 mmol/L (3.5-5.0); Sodium 137 mmol/L (135-145); Total Protein 6.4 g/dL (6.4-8.9)
[2019-08-25 20:17] LABS: HCG Pregnancy < 0.60 mIU/mL
[2019-08-25] MEDS ORDERED: Iohexol 300* (CONTRAST) 10 ML SDV IV ONE (20:23)
[2019-08-25 21:50] LABS: Urine Appearance Clear; Urine Bilirubin Negative (Negative); Urine Blood Negative (Negative); Urine Color Straw; Urine Glucose Negative (Negative); Urine Ketones Negative (Negative); Urine Nitrite Negative (Negative); Urine Protein Negative (Negative); Urine Specific Gravity 1.019 (1.010-1.030); Urine Urobilinogen Negative (Negative)
[2019-08-25 22:25] VITALS: BP 110/74
== END 2019-08-25 22:20 | disposition home or self-care (01) ==
LOC: ED 19:29
DX: R10.31 Right lower quadrant pain (principal); F41.9 Anxiety disorder, unspecified; Z98.51 Tubal ligation status; Z79.899 Other long term (current) drug therapy; Z88.1 Allergy status to other antibiotic agents
CPT/HCPCS: 36415; 74177; 76856; 80053; 81003; 83605; 83690; 84702; 85025; 86140; 96374; 96375; 99283; J2270; J2405; Q9967